=== PATIENT | female | born 1965 | race Caucasian/White ===

== ENCOUNTER → 2018-07-09 16:59 | Outpatient (CLI) | payer OTHER, SELFPAY ==
[2018-07-09 13:15] VITALS: BMI 31.8
== END ==
PROVIDERS: Family Provider Family Medicine; PCP Family Medicine; Referring Provider Nurse Practitioner Women's Health; Visit Provider Nurse Practitioner Women's Health
DX: Z12.4 Encounter for screening for malignant neoplasm of cervix (principal)
CPT/HCPCS: 87624; 88175; G0145

== ENCOUNTER → 2018-07-20 12:30 | Outpatient (CLI) | payer OTHER, SELFPAY ==
[2018-07-09 13:15] VITALS: BMI 31.8
--- NOTE | 2018-07-20 12:31 | US_ITS ---
STUDY: ULTRASOUND OF THE FEMALE PELVIS - COMPLETE REASON FOR EXAM: Female, 53 years old. Menorrhagia. LMP: 07/03/2018 TECHNIQUE: Transabdominal and Transvaginal TECHNICAL QUALITY: Adequate. COMPARISON: CT scan 06/15/2014. FINDINGS: The uterus is anteverted and is in a midline position. The uterus measures 10.1 x 5.6 x 4.8 cm. There is a Nabothian cyst of the cervix. The endometrium measures 5 mm in thickness, and is hyperechoic. There is no demonstrated endometrial mass. There is a 2.2 cm anterior fundal fibroid. The right ovary is visualized. The right ovary measures 3.5 x 2.5 x 2.8 cm. There is a 2.7 cm slightly complicated cystic structure. There is no visualized right adnexal mass or complex lesion. There is normal arterial and normal venous vascularity. The left ovary is visualized. The left ovary measures 3.0 x 3.2 x 2.2 cm. There is no left ovarian cyst or ovarian mass. There is no visualized left adnexal mass or complex lesion. There is normal arterial and normal venous vascularity. There is no fluid in the cul-de-sac. The pre void volume of the bladder was 170 ml. US/Pelvic (Non ) IMPRESSION: 2.2 cm uterine fibroid. 2.7 cm of the right ovarian cyst. Electronically Signed: Willy Grijalva MD at 13:56 EDT , Service support ,
--- NOTE | 2018-07-20 12:31 | US_ITS ---
STUDY: ULTRASOUND OF THE FEMALE PELVIS - COMPLETE REASON FOR EXAM: Female, 53 years old. Menorrhagia. LMP: 07/03/2018 TECHNIQUE: Transabdominal and Transvaginal TECHNICAL QUALITY: Adequate. COMPARISON: CT scan 06/15/2014. FINDINGS: The uterus is anteverted and is in a midline position. The uterus measures 10.1 x 5.6 x 4.8 cm. There is a Nabothian cyst of the cervix. The endometrium measures 5 mm in thickness, and is hyperechoic. There is no demonstrated endometrial mass. There is a 2.2 cm anterior fundal fibroid. The right ovary is visualized. The right ovary measures 3.5 x 2.5 x 2.8 cm. There is a 2.7 cm slightly complicated cystic structure. There is no visualized right adnexal mass or complex lesion. There is normal arterial and normal venous vascularity. The left ovary is visualized. The left ovary measures 3.0 x 3.2 x 2.2 cm. There is no left ovarian cyst or ovarian mass. There is no visualized left adnexal mass or complex lesion. There is normal arterial and normal venous vascularity. There is no fluid in the cul-de-sac. The pre void volume of the bladder was 170 ml. US/Transvaginal Non- IMPRESSION: 2.2 cm uterine fibroid. 2.7 cm of the right ovarian cyst. Electronically Signed: Willy Grijalva MD at 13:56 EDT , Service support ,
== END ==
PROVIDERS: Family Provider Family Medicine; PCP Family Medicine; Referring Provider Nurse Practitioner Women's Health; Visit Provider Nurse Practitioner Women's Health
DX: N92.1 Excessive and frequent menstruation with irregular cycle (principal)
CPT/HCPCS: 76830; 76856; 93976

== ENCOUNTER → 2018-07-22 16:51 | Outpatient (CLI) | payer OTHER, SELFPAY ==
[2018-07-09 13:15] VITALS: BMI 31.8
--- NOTE | 2018-07-22 | EMB_PTH ---
PATIENT: SHWETHA ELLIS LOC: [facility] U#:[id number] AGE/SX: 59/F ROOM: RE07/22/[address]: SWEETIE [place] : 1965 BED: DIS: SPEC #: [id number] RECD: 07/22/18 16:30 STATUS: SHEILA MONICA #: [id number] BEATA: 07/22/18 00:[address]: Brandy Fields NP DEPT: SURGICAL PATHOLOGY RECD BY: Randy Pedraza ENTERED: 07/23/18 12:30 SP TYPE: ENDOM BX/C ALYSIA DR: Dr. Effie Her MD Tissues: Endometrium, NOS Procedures: Surgery Specimen Level IV HEADER OPERATION: Endometrial biopsy PRE-OP DIAGNOSIS: Abnormal uterine bleeding TISSUE SUBMITTED: Endometrial biopsy MICROSCOPIC DIAGNOSIS Endometrial biopsy: Proliferative endometrium. SJ:shaunna 07/24/18 MICROSCOPIC DESCRIPTION Slides are reviewed. GROSS DESCRIPTION Received is one container labeled with the patient's name and not further designated. The specimen consists of multiple fragments of pink hemorrhagic soft tissue that in aggregate measure 3 x 2.5 x 0.3 cm. The specimen is totally submitted in one cassette. / SJ:shaunna 07/23/18 TC:4 CPT: 97137
[2018-07-24 20:06] LABS: HPV, High Risk Negative (Negative)
== END ==
PROVIDERS: Family Provider Family Medicine; PCP Family Medicine; Referring Provider Nurse Practitioner Women's Health; Visit Provider Nurse Practitioner Women's Health
DX: N92.1 Excessive and frequent menstruation with irregular cycle (principal); N93.9 Abnormal uterine and vaginal bleeding, unspecified
CPT/HCPCS: 87623; 87624; 88305

== ENCOUNTER → 2018-08-25 | Outpatient (CLI) | payer OTHER, SELFPAY ==
[2018-07-09 13:15] VITALS: BMI 31.8
--- NOTE | 2018-08-25 12:53 | BI_ITS ---
MAMMOGRAPHY - BILATERAL SCREENING REASON FOR EXAM: Female, 53 years old. Routine annual screening examination. PERTINENT HISTORY: Non-contributory. TECHNIQUE: Digital bilateral breast arun (3D mammographic acquisition) in the CC and MLO projections. 2-D mediolateral oblique (MLO) and craniocaudad (CC) views of both breasts were obtained. CAD: Full Field Digital Mammography with Computer Added Detection was performed. COMPARISON: Comparison is made with prior examination of July 10, 2016 and November 18, 2012. FINDINGS: Breast Composition: The breasts are heterogeneously dense, which may obscure small masses. There are no dominant masses or suspicious calcifications. Stable benign-appearing bilateral axillary lymph nodes. No other significant abnormalities are identified. There has been no significant change since the prior study. BI/SCREEN MAMM (CAD) W/ARUN BILAT IMPRESSION: Stable bilateral screening mammogram. Yearly follow-up mammogram recommended. (A) ASSESSMENT CATEGORY: BIRADS Category 2: Benign. A letter regarding these results will be sent to the patient by the facility within 30 days. Approximately 10% of breast cancers are not detected by mammography. A normal mammogram should not delay biopsy of a clinically suspicious abnormality. [id number] Electronically Signed: Johnathon Kiran, at 15:46 EDT , Service support ,
== END | disposition home or self-care (01) ==
LOC: OPBI 12:45
PROVIDERS: Family Provider Family Medicine; PCP Family Medicine; Referring Provider Nurse Practitioner Women's Health; Visit Provider Nurse Practitioner Women's Health
DX: Z12.31 Encounter for screening mammogram for malignant neoplasm of breast (principal)
CPT/HCPCS: 77063; 77067

== ENCOUNTER → 2018-08-27 | Outpatient (CLI) | payer OTHER, SELFPAY ==
[2018-07-09 13:15] VITALS: BMI 31.8
== END | disposition home or self-care (01) ==
LOC: LABSPEC 16:22
PROVIDERS: Family Provider Family Medicine; PCP Family Medicine; Referring Provider Family Medicine; Visit Provider Family Medicine
DX: N39.0 Urinary tract infection, site not specified (principal)
CPT/HCPCS: 87086; 87088

== ENCOUNTER → 2019-04-01 13:54 | Outpatient (CLI) | payer OTHER, SELFPAY ==
[2019-03-30 14:51] VITALS: BMI 31.8
[2019-04-01 16:02] LABS: Erythrocyte Sedimentation Rate 13 mm/hr (0-30)
[2019-04-01 16:04] LABS: Hematocrit 38.7 % (37-47); Hemoglobin 11.9 g/dL (12.0-15.0); Mean Corp Hgb Conc 30.7 g/dL (32-36); Mean Corpuscular Hgb 24.7 pg (27.0-32.0); Mean Corpuscular Volume 80.3 fL (81-99); Mean Platelet Vol. 11.1 fl (6.2-12.0); Platelet Count 267 K/mm3 (150-450); RBC Distribution Width CV 15.6 % (11.6-14.6); RBC Distribution Width SD 44.9 fl (35.1-43.9); Red Blood Count 4.82 M/mm3 (4.2-5.4)
[2019-04-01 16:16] LABS: ALB/GLOB Ratio 1.1 RATIO (0.9-2.4); AST(SGOT) 34 U/L (15-37); Alanine Aminotransfer ALT/SGPT 34 U/L (13-56); Albumin, Serum 3.7 g/dL (3.2-5.0); Alkaline Phosphatase 85 U/L (45-117); Anion Gap 5 (5-15); BUN 16 mg/dL (7-18); BUN/Creat Ratio 22.7 RATIO (10-20); Chloride 106 mmol/L (98-107); Creatinine, Serum 0.71 mg/dL (0.55-1.02); EST Glomerular Filtration Rate 92 mL/min (>60); Est Glom Filt Rate - Afr Amer 111 mL/min (>60); Ferritin 8 ng/mL (8-252); Free T3 2.9 pg/mL (2.18-3.98); Globulin 3.4 g/dL (2.2-4.2); Glucose 84 mg/dL (74-106); Magnesium 1.8 mg/dL (1.6-2.6); Protein, Total 7.1 g/dL (6.4-8.2); Sodium Level 140 mmol/L (136-145); T3 Uptake 31 % (30-39); T4 Free Direct 0.88 ng/dL (0.76-1.46); Thyroid Stim Hormone (TSH) 2.66 uIU/mL (0.358-3.74)
[2019-04-01 16:57] LABS: Vitamin B12 1266 pg/mL (211-911); Vitamin D,25 Hydroxy 27.8 ng/mL (29.95-100.01)
[2019-04-03 13:31] LABS: Thyroid Peroxidase AB 7 IU/mL (0-34)
== END ==
PROVIDERS: Family Provider Family Medicine; PCP Family Medicine; Referring Provider Family Medicine; Visit Provider Family Medicine
DX: R53.83 Other fatigue (principal)
CPT/HCPCS: 36415; 80053; 82306; 82607; 82728; 83735; 84439; 84443; 84479; 84481; 85027; 85652; 86376

== ENCOUNTER 2019-04-12 09:42 | Day surgery (SDC) | payer OTHER, SELFPAY ==
[2019-03-30 14:51] VITALS: BMI 31.8
--- NOTE | 2019-03-31 12:39 | HP_ITS ---
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: No Is patient in pain?: No Allergies morphine Allergy (Verified 03/30/19 14:50) Other Medications biotin 1 mg capsule 1 mg PO DAILY 07/22/18 [History Confirmed 07/22/18] cholecalciferol (vitamin D3) 1,000 unit capsule 1,000 unit PO DAILY 07/22/18 [History Confirmed 03/30/19] cyanocobalamin (vitamin B-12) 1,000 mcg capsule 1,000 mcg PO DAILY 07/22/18 [History Confirmed 03/30/19] vitamin A 8,000 unit capsule 8,000 unit PO DAILY 07/22/18 [History Confirmed 03/30/19] psyllium husk 0.4 gram capsule 0.4 g PO DAILY 03/30/19 [History Confirmed 03/30/19] PFSH Medical History Fatigue (Acute) Hyperglycemia (Acute) Acid reflux (Acute) Constipation (Acute) Abdominal pain (Acute) Surgical History Hx of umbilical hernia repair (Acute) delivery delivered (Acute) Hx of appendectomy (Acute) Hx of cholecystectomy (Acute) Family History Mother Cancer lung-smoker Father Atrophic emphysema Thyroid disorder Sister Thyroid disorder Social History (Updated 03/31/19 @ 12:39 by Debbie Foster MD) Smoking Status: Never smoker alcohol intake: never substance use type: does not use caffeine: Yes what type of physical activity do you participate in: walking seatbelt use: always do you feel safe at home: Yes additional social history: Pavel chatterjee 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 Patient states she has had abdominal pain above the umbilicus off and on for a while occasionally can get at 10/10 does resolve on its own. Patient has had 2 previous hernia repairs at the umbilicus patient states that the last repair was done by Dr. Warren he placed a large piece of mesh and did remove some of the other mesh but unable to remove all of it per the patient. Patient does not notice anything that makes the pain worse or aggravates the pain. Patient has never had a colonoscopy denies any family history of colon cancer. Patient states she has bowel movements every other day. Patient does take a fiber supplement twice daily however it is typically only about 3 pills which only equals 4.5 g. Patient does not think she drinks enough water. Patient also states she has daily reflux and takes Tums. She has had these symptoms for about 10 years. Patient was on Prilosec however she got kidney stones and she read that can be 1 of the side effects when she stopped the Prilosec she no longer got any kidney stones. 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 Abdominal pain R10.9 2. GERD (gastroesophageal reflux disease) K21.9 3. Encounter for screening for malignant neoplasm of colon Z12.11 Plan Recommend patient try taking Pepcid instead of Tums as it will likely work better. We will also check and see if there is any of the PPIs that does not have the side effect of kidney stones. Patient may also benefit from increased water intake as well as fiber intake. Discussed with patient recommend 25 g of fiber daily. I have discussed the above with the patient. I have offered the patient EGD and colonoscopy for evaluation. I have explained the risks/benefits of the procedure and described the procedure. I have discussed the risks with the patient, including but not limited to: infection, bleeding, perforation of the GI tract requiring emergency surgery, inability to complete the procedure, injury to any internal organs, complications of anesthesia, etc. - the patient understands and agrees to proceed. I have answered all the patient's questions to the patient's satisfaction and the patient has no further questions. The patient has been given instructions for the colon cleansing preparation. One day of clears, MiraLAX to collect split prep Debbie Foster M.D. Pager: [phone] [facility] [address] [place] [address], [address] [place] [id number] Office: [phone] Orders Orders: Colonoscopy 03/30/19 EGD 03/30/19 Plan Detail Follow Up We will schedule EGD and colonoscopy Coding Level of Care Code Off vis,new,level 3 Diagnoses Abdominal pain R10.9 GERD (gastroesophageal reflux disease) K21.9 Encounter for screening for malignant neoplasm of colon Z12.11 03/31/19 1239 <Electronically signed by Debbie Yee am, MD> Date _ Debbie Foster MD I have examined the patient the following changes are noted: Patient still has been having reflux and been taking Tums 2-3 times daily. Encourage patient to try at least Pepcid/famotidine instead as it should work better than Tums.
[2019-04-12 10:05] VITALS: BP 123/78; PULSE 71; RESP 16; TEMP 37.1; O2SAT 99; BMI 31.1
[2019-04-12 10:08] LABS: Internal QC Validated? YES +Cl - CLEAR BKGD; Pregnancy, Urine Negative Negative
[2019-04-12] MEDS: Lactated Ringers 1,000 ML 100 ML IV (10:12)
--- NOTE | 2019-04-12 11:00 | EGD_PTH ---
PATIENT: SHWETHA ELLIS LOC: EN U#:[id number] AGE/SX: 53/F ROOM: RE04/12/[address]: Dr. Debbie Foster MD : 1965 BED: DIS: 04/12/2019 SPEC #: [id number] RECD: 04/12/19 13:15 STATUS: SHEILA MONICA #: [id number] BEATA: 04/12/19 11:[address]: Debbie Foster DEPT: SURGICAL PATHOLOGY RECD BY: Sebastian Salmon ENTERED: 04/12/19 14:17 SP TYPE: EGD BIOPSY CHANNING DR: Dr. Effie Her MD Tissues: A - Gastric mucous membrane B - Gastric mucous membrane Procedures: Surgery Specimen Level IV HEADER OPERATION: Colonoscopy, [place] [place] DIAGNOSIS: Abdominal pain, GERD, screening colonoscopy TISSUE SUBMITTED: A. Antrum biopsy for H. pylori and path, B. GE junction biopsy MICROSCOPIC DIAGNOSIS A. Gastric antrum, biopsy: Mild chronic gastritis. See comment. B. Gastroesophageal junction, biopsy: Gastric mucosa with chronic inflammation and focal acute inflammation. See comment. AM:shaunna 04/13/19 COMMENT A. The results of immunohistochemistry for Helicobacter pylori will be reported separately ([id number]). B. Squamous mucosa is not represented in the biopsy. Clinical correlation is suggested. MICROSCOPIC DESCRIPTION Slides are reviewed. GROSS DESCRIPTION A - Received in fixative is one container labeled with the patient's name and designated antrum biopsy. The specimen consists of one irregular fragment of light ortiz soft tissue that measures 0.6 x 0.2 x 0.1 cm. The specimen is totally submitted in one cassette. B - Received in fixative is one container labeled with the patient's name and designated GE junction biopsy. The specimen consists of one irregular fragment of light ortiz soft tissue that measures 0.5 x 0.3 x 0.1 cm. The specimen is totally submitted in one cassette. / AM:shaunna 04/12/19 TC:3 CPT: 44894 x2
--- NOTE | 2019-04-12 11:00 | IMM_PTH ---
PATIENT: SHWETHA ELLIS LOC: EN U#:[id number] AGE/SX: 53/F ROOM: RE04/12/[address]: Dr. Debbie Foster MD : 1965 BED: DIS: 04/12/2019 SPEC #: [id number] RECD: 04/12/19 14:50 STATUS: SHEILA REQ #: [id number] BEATA: 04/12/19 11:[address]: Debbie Foster DEPT: IMMUNOHISTOCHEMISTRY RECD BY: Kizzy Lam ENTERED: 04/12/19 14:51 SP TYPE: IMMUNO OTHR DR: Dr. Effie Her MD Tissues: A - Stomach, NOS Procedures: H Pylori (initial) PHYSICIAN & INSTITUTION [place] [id number] SPECIMEN INFORMATION: Tissue Source: A - Antrum biopsy Clinical Info: Abdomen pain, GERD, screening Specimen Number: [id number] CPT code: 15830 METHODOLOGY: Deparaffinized sections of prefer/formalin-fixed tissue or PAP/DQ stained slides are incubated with monoclonal/polyclonal antibodies/oligonucleotide probes. Localization is made via biotin free immunoperoxidase method. Appropriate controls are performed and reacted as expected. Results on target cell population are indicated in the following table: RESULTS: ANTIBODY / CLONE RESULT Block A H Pylori (polyclonal) negative These tests were developed and their performance characteristics determined by [facility]. They may not have been cleared or approved by the U.S. Food and Drug Administration. The FDA has determined that such clearance or approval is not necessary. INTERPRETATION: A. Antrum biopsy: Negative for Helicobacter pylori organisms. AM:shaunna 04/13/19
[2019-04-12 11:57] VITALS: BP 123/78; BP 99/56; PULSE 70; RESP 16; TEMP 36.6; O2SAT 96
--- NOTE | 2019-04-12 11:57 | OP.EGD_ITS ---
Patient Name: Evette Alvarenga Procedure Date: 04/12/2019 11:21 AM Date of : 1965 Age: 53 Procedure: Upper GI endoscopy Indications: Heartburn Providers: Debbie Foster MD Referring MD: Effie Her Medicines: Monitored Anesthesia Care Patient Profile: This is a 53 year old female. Complications: No immediate complications. Procedure: Pre-Anesthesia Assessment: - Prior to the procedure, a History and Physical was performed, and patient medications and allergies were reviewed. The patient's tolerance of previous anesthesia was also reviewed. The risks and benefits of the procedure and the sedation options and risks were discussed with the patient. All questions were answered, and informed consent was obtained. Prior Anticoagulants: The patient has taken no previous anticoagulant or antiplatelet agents. ASA Grade Assessment: II - A patient with mild systemic disease. After reviewing the risks and benefits, the patient was deemed in satisfactory condition to undergo the procedure. After obtaining informed consent, the endoscope was passed under direct vision. Throughout the procedure, the patient's blood pressure, pulse, and oxygen saturations were monitored continuously. The gastroscope was introduced through the mouth, and advanced to the second part of duodenum. The upper GI endoscopy was accomplished without difficulty. The patient tolerated the procedure well. Scope In: 11:29:18 AM Scope Out: 11:33:48 AM Total Procedure Duration Time 0 hours 4 minutes 30 seconds Findings: The Z-line was irregular. Biopsies were taken with a cold forceps for histology. Mildly erythematous mucosa without bleeding was found in the gastric antrum. Biopsies were taken with a cold forceps for histology. A few less than 5 mm erosions were found in the gastric body. The examined duodenum was normal. Impression: - Z-line irregular. Biopsied. - Erythematous mucosa in the antrum. Biopsied. - Erosive gastropathy. - Normal examined duodenum. Recommendation: - Use Pepcid (famotidine) 40 mg PO daily. - Use sucralfate tablets 1 gram PO QID for 2 weeks. - Continue present medications. Procedure Code(s): --- Professional --- 21415, Esophagogastroduodenoscopy, flexible, transoral; with biopsy, single or multiple Diagnosis Code(s): --- Professional --- K22.8, Other specified diseases of esophagus K31.89, Other diseases of stomach and duodenum R12, Heartburn CPT copyright 2017 [employer]. All rights reserved. The codes documented in this report are preliminary and upon analog device designer review may be revised to meet current compliance requirements. MD Debbie Donohue MD 04/12/2019 11:57:27 AM This report has been signed electronically. Number of Addenda: 0 Note Initiated On: 04/12/2019 11:21 AM
--- NOTE | 2019-04-12 12:00 | OP.COLON_ITS ---
Patient Name: Evette Alvarenga Procedure Date: 04/12/2019 11:34 AM Date of : 1965 Age: 53 Procedure: Colonoscopy Indications: Screening for colorectal malignant neoplasm Providers: Debbie Foster MD Referring MD: Effie Her Medicines: Monitored Anesthesia Care Patient Profile: This is a 53 year old female. Last Colonoscopy: none. The patient's first colonoscopy is today. Complications: No immediate complications. Procedure: Pre-Anesthesia Assessment: - Prior to the procedure, a History and Physical was performed, and patient medications and allergies were reviewed. The patient's tolerance of previous anesthesia was also reviewed. The risks and benefits of the procedure and the sedation options and risks were discussed with the patient. All questions were answered, and informed consent was obtained. Prior Anticoagulants: The patient has taken no previous anticoagulant or antiplatelet agents. ASA Grade Assessment: II - A patient with mild systemic disease. After reviewing the risks and benefits, the patient was deemed in satisfactory condition to undergo the procedure. After I obtained informed consent, the scope was passed under direct vision. Throughout the procedure, the patient's blood pressure, pulse, and oxygen saturations were monitored continuously. The Colonoscope was introduced through the anus and advanced to the cecum, identified by the appendiceal orifice, ileocecal valve and palpation. The colonoscopy was performed without difficulty. The patient tolerated the procedure well. The quality of the bowel preparation was good. Scope In: 11:36:09 AM Scope Withdrawal Time 0 hours 8 minutes 32 seconds Scope Out: 11:49:40 AM Total Procedure Duration Time 0 hours 13 minutes 31 seconds Findings: The perianal and digital rectal examinations were normal. The entire examined colon appeared normal on direct and retroflexion views. Impression: - The entire examined colon is normal on direct and retroflexion views. - No specimens collected. Recommendation: - Discharge patient to home. - Resume previous diet. - Repeat colonoscopy in 10 years for screening purposes. - Continue present medications. Procedure Code(s): --- Professional --- G0121, PT, Colorectal cancer screening; colonoscopy on individual not meeting criteria for high risk Diagnosis Code(s): --- Professional --- Z12.11, Encounter for screening for malignant neoplasm of colon CPT copyright 2017 [employer]. All rights reserved. The codes documented in this report are preliminary and upon medical records coder review may be revised to meet current compliance requirements. MD Debbie Donohue MD 04/12/2019 12:00:11 PM This report has been signed electronically. Number of Addenda: 0 Note Initiated On: 04/12/2019 11:34 AM
[2019-04-12 12:02] VITALS: BP 100/60; BP 123/78; PULSE 77; RESP 16; O2SAT 98
[2019-04-12 12:07] VITALS: BP 117/69; BP 123/78; PULSE 74; RESP 16; O2SAT 100
[2019-04-12 12:12] VITALS: BP 118/67; BP 123/78; PULSE 78; RESP 16; TEMP 36.6; O2SAT 99
[2019-04-12 13:00] VITALS: BP 123/78
== END 2019-04-12 13:03 | disposition home or self-care (01) ==
LOC: EN 09:44 → AC 09:45
PROVIDERS: Anesthesiology; Family Provider Family Medicine; PCP Family Medicine; Referring Provider Family Medicine; Visit Provider Surgery
PROC: 0DJD8ZZ Inspection of Lower Intestinal Tract, Via Natural or Artificial Opening Endoscopic (ICD-10-PCS; CPT 45378; principal; 2019-04-12 10:55)
DX: Z12.11 Encounter for screening for malignant neoplasm of colon (principal); K29.50 Unspecified chronic gastritis without bleeding; K31.89 Other diseases of stomach and duodenum; K22.8 Other specified diseases of esophagus; K21.9 Gastro-esophageal reflux disease without esophagitis; R12 Heartburn; R10.33 Periumbilical pain
CPT/HCPCS: 43239; 45378; 81025; 88305; 88342; J7120

== ENCOUNTER → 2020-01-27 17:36 | Outpatient (CLI) | payer OTHER, SELFPAY | PROVIDERS: PCP Family Medicine; Referring Provider Family Medicine; Visit Provider Family Medicine | DX: Z11.59 Encounter for screening for other viral diseases (principal) | CPT/HCPCS: 87635; C9803; U0003 ==

== ENCOUNTER → 2020-06-29 | Outpatient (CLI) | payer OTHER, SELFPAY ==
[2020-06-29 15:40] VITALS: BMI 31.8
[2020-07-04 20:33] LABS: HPV APTIMA, High Risk Negative (Negative)
== END | disposition home or self-care (01) ==
LOC: LABSPEC 16:37
PROVIDERS: PCP Family Medicine; Referring Provider Nurse Practitioner Women's Health; Visit Provider Nurse Practitioner Women's Health
DX: Z12.4 Encounter for screening for malignant neoplasm of cervix (principal)
CPT/HCPCS: 87624; 88175; G0145

== ENCOUNTER → 2020-07-25 15:03 | Outpatient (CLI) | payer OTHER, SELFPAY ==
[2020-06-29 15:40] VITALS: BMI 31.8
--- NOTE | 2020-07-25 15:15 | US_ITS ---
STUDY: RENAL ULTRASOUND - COMPLETE REASON FOR EXAM: Female, 55 years old. Flank pain and renal stones TECHNIQUE: Ultrasound evaluation of the kidneys was performed with real-time and static mayen-scale imaging. COMPARISON: None. FINDINGS: RIGHT KIDNEY: Normal location of the right kidney, which is normal in size. The right kidney measures 12.1 cm x 5.1 cm x 5.1 cm. There is a normal cortex of the right kidney. The renal cortex measures 1.7 cm. There is no right renal mass or cyst. 3 mm calculus in the midportion of the right kidney. There is no right hydronephrosis. DISTAL RIGHT URETER: There is non-visualization of the distal right ureter. There is no demonstrated right ureterovesical junction calculus. There is no demonstrated right ureteral jet. LEFT KIDNEY: Normal location of the left kidney, which is normal in size. The left kidney measures 13.1 cm x 4.6 cm x 6.2 cm. There is a normal cortex of the left kidney. The renal cortex measures 1.6 cm. There is no left renal mass or cyst. 6 mm calculus in the midportion of the left kidney. There is no left hydronephrosis. DISTAL LEFT URETER: There is non-visualization of the distal left ureter. There is no demonstrated left ureterovesical junction calculus. There is a visualized left ureteral jet. BLADDER: The distended urinary bladder has a volume of 166.5 ml. The empty urinary bladder has a volume of 17.3 ml. There is a normal wall thickness of the distended urinary bladder. There is no demonstrated mass within the urinary bladder. There are no demonstrated bladder calculi. US/Kidney and Bladder IMPRESSION: Small nonobstructive bilateral intrarenal calculi. Electronically Signed: Johnathon Kiran MD at 14:22 EDT , Service support ,
== END ==
PROVIDERS: PCP Family Medicine; Referring Provider Family Medicine; Visit Provider Family Medicine
DX: M54.9 Dorsalgia, unspecified (principal)
CPT/HCPCS: 76770

== ENCOUNTER 2021-03-25 10:20 | Emergency (ER) | payer OTHER, SELFPAY ==
[2021-03-25 10:26] VITALS: BP 118/65; PULSE 65; RESP 16; TEMP 36.7; O2SAT 96; BMI 34.9
--- NOTE | 2021-03-25 10:35 | RAD_ITS ---
STUDY: X-RAY CHEST REASON FOR EXAM: Female, 55 years old. chest pain TECHNIQUE: Single AP portable view of the chest. COMPARISON: None. FINDINGS: The lungs are clear and expanded. There is no demonstrated pleural abnormality. Normal size heart. Normal mediastinum and pratik. Normal visualized pulmonary arteries. Normal visualized aortic arch and descending thoracic aorta. Normal visualized thoracic spine. Normal visualized ribs, clavicles, and shoulders. There is no demonstrated abnormality of the visualized soft tissue structures of the upper abdomen. RAD/Chest 1 View (Portable) IMPRESSION: Normal x-ray examination of the chest. Electronically Signed: Hood Estrada MD at 10:55 EST Tel , Service support ,
--- NOTE | 2021-03-25 10:35 | EKG12_ITS ---
Test Reason : CP Blood Pressure : / mmHG Vent. Rate : 063 BPM Atrial Rate : 063 BPM P-R Int : 148 ms QRS Dur : 084 ms QT Int : 408 ms P-R-T Axes : 047 009 004 degrees QTc Int : 417 ms Normal sinus rhythm Low voltage QRS Borderline ECG Confirmed by RIMA WIGGINS, JEANIE ([id number]), book editor TYSON CRESPO ([id number]) on 03/28/2021 10:38:05 AM Referred By: ESTELLA Confirmed By:JEANIE ABARCA MD
--- NOTE | 2021-03-25 10:36 | EDS_ITS ---
HPI History of Present Illness Chief Complaint: Chest Pain Detail of Chief Complaint: Chest pain that started about 9:30 AM Informant: patient Onset/Context/Timing Timing: Continuous Quality: Positive for Stabbing Current Severity: 0/10 Narrative Narrative: Patient presents to the emergency department complaint of chest pain that started about 9:30 AM. 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 Patient subsequently developed sharp stabbing pain in her right chest, radiated to her back and the left chest. She denied nausea or vomiting with it or shortness of breath. Patient then noticed numbness and ting ling in her hands and her face. She felt presyncopal but did not pass out. EMS was called and they gave her nitroglycerin which she thinks seem to have helped the pain. She is currently not experiencing any pain. Patient has not had discomfort like that before. She denies recent travel or surgery. She denies recent illness. No family history of heart disease. No history of PE or DVT. [facility] Medical History (Updated 03/25/21 @ 13:[address] Tico Mehta, ) Acid reflux Hyperglycemia Home Medications biotin 1 mg capsule 1 mg PO DAILY 07/22/18 [History Last Taken Unknown] cholecalciferol (vitamin D3) 25 mcg (1,000 unit) capsule 1,000 unit PO DAILY 07/22/18 [History Last Taken Unknown] cyanocobalamin (vitamin B-12) 1,000 mcg capsule 1,000 mcg PO DAILY 07/22/18 [History Last Taken Unknown] vitamin A 2,400 mcg capsule 8,000 unit PO DAILY 07/22/18 [History Last Taken Unknown] multivitamin 1 tab PO DAILY 06/29/20 [History Last Taken Unknown] Allergy/AdvReac Type Severity Reaction Status Date / Time morphine Allergy LOW BP AND Verified 03/25/21 10:28 HR Family History Mother Cancer lung-smoker Father Atrophic emphysema Thyroid disorder Sister Thyroid disorder Surgical History delivery delivered Hx of appendectomy Hx of cholecystectomy Hx of umbilical hernia repair Social History (Updated 06/29/20 @ 16:07 by Brandy Fields NP, [employer]) number of children: 6 Smoking Status: Never smoker alcohol intake: never substance use type: does not use caffeine: Yes what type of physical activity do you participate in: walking seatbelt use: always do you feel safe at home: Yes additional social history: Pavel chatterjee 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 ROS ROS ED Review of Systems ROS Unobtainable: other Constitutional Constitutional ED: Reports lethargy; Denies chills, fever(s), sweats or weight l oss Eyes Eyes: Denies blurry vision, change in vision or diplopia ENT ENT ED: Denies rhinorrhea or sore throat Cardiovascular Cardiovascular: Reports chest pain; Denies orthopnea or racing heartbeat Respiratory/Chest Respiratory/Chest: Reports dyspnea and dyspnea on exertion; Denies cough, orthopnea or sputum Gastrointestinal Gastrointestinal: Denies abdominal pain, diarrhea, nausea or vomiting Genitourinary Genitourinary ED: Denies dysuria, hematuria or urinary frequency Musculoskeletal Musculoskeletal: Denies arthralgias, back pain, myalgias or neck pain Integumentary Denies abscess, Abrasions or rash Neurologic Neurologic: Reports paresthesias; Denies headache(s) or weakness Psychiatric Psychiatric: Denies anxiety, depression or suicidal thoughts Endocrine Endocrinology: Denies polydipsia, polyphagia or polyuria Hematologic/Lymphatic Hematologic/Lymphatic: Denies easy bleeding, easy bruising or lymphadenopathy Allergic/Immunologic Allergic/Immunologic ED: Denies mouth swelling, tongue swelling or urticaria EXAM Physical Exam Const Vital Signs: 03/25/21 10:26 03/25/21 10:35 03/25/21 10:43 Temperature 98.1 F Temperature Source Oral Pulse Rate 65 Respiratory Rate 16 Respiratory Effort Normal Respiratory Pattern Normal Blood Pressure 118/65 Blood Pressure Mean 82 Pulse Ox 96 Oxygen Delivery Method Room Air Room Air 03/25/21 11:00 03/25/21 12:00 Temperature Temperature Source Pulse Rate 59 L 64 Respiratory Rate 15 14 Respiratory Effort Respiratory Pattern Blood Pressure 114/64 125/65 H Blood Pressure Mean 80 85 Pulse Ox 97 99 Oxygen Delivery Method Room Air Room Air Positive well nourished and well developed General Appearance ED: well developed and NAD HEENT Reports TM's clear and moist mucous membranes normocephalic and atraumatic; Negative for trauma or tenderness Tympanic Membrane ED: Yes TM's clear Eyes PERRL and EOMs intact bilaterally General Eye ED: Negative for pale conjunctiva or scleral icterus Neck no lymphadenopathy, supple and no JVD General: Negative for tenderness Chest Wall inspection of chest normal and palpation of chest normal Chest: Negative for tenderness Resp normal respiratory effort and clear to auscultation bilaterally Effort and Inspection: Negative for respiratory distress or pain with movement Auscultation: Negative for rhonchi, wheezes or diminished lung sounds Cardio regular rate, regular rhythm, S1 normal heart sound, S2 normal heart sound and no murmurs Peripheral Pulses: pulses 2+ throughout GI normal to inspection, nondistended, normoactive bowel sounds, soft to palpation, non-tender, non-distended and no masses Back/Spine no CVA tenderness and no thoracic nor lumbar tenderness Extremity normal to inspection General Extremety ED: Negative for edema General Extremity: Negative for edema Neuro oriented x3, CN's II-XII intact bilaterally, no sensory deficits noted and gait normal Sensorium / Orientation: awake, alert, oriented to person, oriented to place and oriented to time Motor Exam: strength 5/5 throughout and strength abnormal Psych mental status grossly normal Skin no rashes or lesions noted and no wounds Heart Score History: Slightly/Non-Suspicious ECG: Normal Age: >45 - <65 years Risk Factors: No Risk Factors Troponin: </= Normal Limit Score: 1 MDM MDM MDM Narrative Medical decision making narrative: IV line established on arrival. Patient placed on a residential monitor. She received aspirin. Patient remained pain-free in the department. Her work-up in the department was unremarkable including blood work as well as D-dimer which was negative. Patient initial troponin was also normal and a delta troponin also was normal. This point etiology of her discomfort was unclear although I do not suspect an acute coronary syndrome as she has a heart score of 1 and feel she is low risk. Is possible she may have had a vasovagal episode as well given the paresthesias and near syncope sensation. Patient also had been standing for some time. Lab Data Attestation: I reviewed the patient's lab results. Labs: Laboratory Results - last 24 hr 03/25/21 03/25/21 03/25/21 10:35 10:35 10:35 WBC 7.6 RBC 3.88 L Hgb 10.1 L Hct 32.0 L MCV 82.5 MCH 26.0 L MCHC 31.6 L RDW Std Deviation 45.8 H RDW Coeff of Zaria 15.3 H Plt Count 229 MPV 10.7 Immature Gran % (Auto) 0.400 Neut % (Auto) 55.7 Lymph % (Auto) 30.5 Woodward % (Auto) 9.7 Eos % (Auto) 3.0 Baso % (Auto) 0.7 Absolute Neuts (auto) 4.2 Absolute Lymphs (auto) 2.32 Nucleated RBC % 0 D-Dimer Quant (PE/DVT) 0.35 Sodium 143 Potassium 3.9 Chloride 111 H Carbon Dioxide 28.0 Anion Gap 4 L BUN 15 Creatinine 0.72 Estim Creat Clear Calc 79.44 Est GFR (MDRD) Af Amer 108 Est GFR (MDRD) Non-Af 90 BUN/Creatinine Ratio 20.9 H Glucose 103 Calcium 8.6 Troponin I High Sens < 3 L 03/25/21 12:30 WBC RBC Hgb Hct MCV MCH MCHC RDW Std Deviation RDW Coeff of Zaria Plt Count MPV Immature Gran % (Auto) Neut % (Auto) Lymph % (Auto) Woodward % (Auto) Eos % (Auto) Baso % (Auto) Absolute Neuts (auto) Absolute Lymphs (auto) Nucleated RBC % D-Dimer Quant (PE/DVT) Sodium Potassium Chloride Carbon Dioxide Anion Gap BUN Creatinine Estim Creat Clear Calc Est GFR (MDRD) Af Amer Est GFR (MDRD) Non-Af BUN/Creatinine Ratio Glucose Calcium Troponin I High Sens 4 Radiography Chest X-Ray - ED: 1 View Diagnostic Testing: Clinical Impression(s) from Imaging Studies Chest X-Ray 03/25/21 10:35 IMPRESSION: Normal x-ray examination of the chest. Electronically Signed: Hood Estrada MD at 10:55 EST Tel , Service support , 1 view chest x-ray obtained interpreted by myself as no acute disease process. EKG Initial EKG: Attestation: I personally reviewed and interpreted this EKG as follows: Comments: Sinus rhythm with a ventricular rate of 63 bpm with low voltage otherwise no acute disease process Discharge Plan Triage Chief Complaint: Chest Pain ED Provider: Tico Mehta Dx/Rx/DC Orders Clinical Impression: Chest pain, Near syncope Instructions: ED Chest Pain, Uncertain Cause, ED Near-Fainting, Uncertain Cause Prescriptions: No Action vitamin A 8,000 unit capsule 8,000 unit PO DAILY RF: 0 cyanocobalamin (vitamin B-12) 1,000 mcg capsule 1,000 mcg PO DAILY RF: 0 cholecalciferol (vitamin D3) 1,000 unit capsule 1,000 unit capsule 1,000 unit PO DAILY RF: 0 biotin 1 mg capsule 1 mg PO DAILY RF: 0 multivitamin Tablet 1 tab PO DAILY RF: 0 Primary Care Provider: Effie Her Referrals: Effie Her MD [Primary Care Provider] - 3-5 Days Disposition Disposition: Home, Self Care
[2021-03-25 10:49] LABS: Absolute Lymphocyte Count 2.32 X10^3/uL (0.83-4.51); Absolute Neutrophil Count 4.2 X10^3/uL (2.0-7.7); Basophil# 0.05 X10^3/uL; Basophil% 0.7 % (0-1); Eosinophil# 0.23 X10^3/uL; Hemoglobin 10.1 g/dL (12.0-15.0); Lymphocyte # 2.32 X10^3/ul (0.83-4.51); Lymphocyte % 30.5 % (19-41); Mean Corp Hgb Conc 31.6 g/dL (32-36); Mean Corpuscular Volume 82.5 fL (81-99); Mean Platelet Vol. 10.7 fl (6.2-12.0); Monocyte# 0.74 X10^3/uL; Monocyte% 9.7 % (0-10); NRBC Flagged by Analyzer 0 % (0-5); Neutrophil # 4.23 X10^3/uL (2.7-7.7); Neutrophil % 55.7 % (47-70); Platelet Count 229 K/mm3 (150-450); RBC Distribution Width CV 15.3 % (11.6-14.6); RBC Distribution Width SD 45.8 fl (35.1-43.9); Red Blood Count 3.88 M/mm3 (4.2-5.4); White Blood Count 7.6 K/mm3 (4.4-11.0)
[2021-03-25 11:00] VITALS: BP 114/64; PULSE 59; RESP 15; O2SAT 97
[2021-03-25 11:05] LABS: Anion Gap 4 (5-15); BUN 15 mg/dL (7-18); BUN/Creat Ratio 20.9 RATIO (10-20); Calcium,Total 8.6 mg/dL (8.5-10.1); Chloride 111 mmol/L (98-107); Creatinine, Serum 0.72 mg/dL (0.55-1.02); D-Dimer Quantitative (DVT/PE) 0.35 FEU/ug/m (0.27-0.49); EST Glomerular Filtration Rate 90 mL/min (>60); Est Glom Filt Rate - Afr Amer 108 mL/min (>60); Estimated Creatinine Clearance 79.44 ml/min; Glucose 103 mg/dL (74-106); Potassium 3.9 mmol/L (3.5-5.1); Sodium Level 143 mmol/L (136-145); Troponin-I HS < 3 pg/mL (3.0-54.0)
[2021-03-25 12:00] VITALS: BP 125/65; PULSE 64; RESP 14; O2SAT 99
[2021-03-25 12:55] LABS: Troponin-I HS 4 pg/mL (3.0-54.0)
[2021-03-25 13:30] VITALS: BP 108/62; PULSE 65; RESP 22; O2SAT 96
== END 2021-03-25 13:31 | disposition home or self-care (01) ==
PROVIDERS: Emergency Provider Emergency Medicine; PCP Family Medicine
DX: R07.89 Other chest pain (principal); R55 Syncope and collapse; R20.2 Paresthesia of skin; R20.0 Anesthesia of skin
CPT/HCPCS: 71045; 80048; 84484; 85025; 85379; 93005; 99284; A4216

== ENCOUNTER → 2021-03-27 | Outpatient (CLI) | payer OTHER, SELFPAY ==
--- NOTE | 2021-03-27 | EMB_PTH ---
PATIENT: SHWETHA ELLIS LOC: [facility] U#:[id number] AGE/SX: 55/F ROOM: RE03/27/[address]: SWEET[place] : 1965 BED: DIS: 03/27/2021 SPEC #: [id number] RECD: 03/27/21 13:08 STATUS: SHEILA REQ #: [id number] BEATA: 03/27/21 00:[address]: Brandy Fields NP DEPT: SURGICAL PATHOLOGY RECD BY: Edgar Mohamud ENTERED: 03/27/21 13:08 SP TYPE: ENDOM BX/C ALYSIA DR: Dr. Effie Her MD Tissues: Endometrium, NOS Procedures: Surgery Specimen Level IV HEADER OPERATION: Endometrial biopsy PRE-OP DIAGNOSIS: PMB TISSUE SUBMITTED: Endometrial biopsy MICROSCOPIC DIAGNOSIS Endometrium, biopsy: Weakly proliferative endometrium with focal glandular breakdown. Fragments of benign endocervix. AM:shaunna 03/28/2021 MICROSCOPIC DESCRIPTION Slides are reviewed. GROSS DESCRIPTION Received is one container labeled with the patient's name and not further designated. The specimen consists of multiple irregular fragments of pink-ortiz soft tissue that in aggregate measure 2 x 1 x 0.1 cm. The specimen is totally submitted in one cassette. / AM:shaunna 03/27/21 TC:5 CPT: 91383
== END | disposition home or self-care (01) ==
PROVIDERS: PCP Family Medicine; Referring Provider Nurse Practitioner Women's Health; Visit Provider Nurse Practitioner Women's Health
DX: N95.0 Postmenopausal bleeding (principal)
CPT/HCPCS: 88305

== ENCOUNTER → 2021-04-03 07:27 | Outpatient (CLI) | payer OTHER, SELFPAY ==
--- NOTE | 2021-04-03 07:29 | BI_ITS ---
MAMMOGRAPHY - BILATERAL SCREENING REASON FOR EXAM: Female, 55 years old. Routine annual screening examination. PERTINENT HISTORY: Non-contributory. TECHNIQUE: Digital bilateral breast arun (3D mammographic acquisition) in the CC and MLO projections. 2-D mediolateral oblique (MLO) and craniocaudad (CC) views of both breasts were obtained. CAD: Full Field Digital Mammography with Computer Added Detection was performed. COMPARISON: Comparison is made with prior study dated 08/25/2018 and 07/10/2016. FINDINGS: Breast Composition: The breasts are heterogeneously dense, which may obscure small masses. There are no dominant masses or suspicious calcifications. Stable benign-appearing bilateral axillary lymph nodes. No other significant abnormalities are identified. There has been no significant change since the prior study. BI/SCRN MAMM (CAD)W/ARUN BILAT IMPRESSION: Stable bilateral screening mammogram. Yearly follow-up mammogram recommended. (A) ASSESSMENT CATEGORY: BIRADS Category 2: Benign. A letter regarding these results will be sent to the patient by the facility within 30 days. Approximately 10% of breast cancers are not detected by mammography. A normal mammogram should not delay biopsy of a clinically suspicious abnormality. [id number] Electronically Signed: Johnatohn Kiran MD at 8:52 EST , Service support ,
== END ==
PROVIDERS: PCP Family Medicine; Referring Provider Nurse Practitioner Women's Health; Visit Provider Nurse Practitioner Women's Health
DX: Z12.31 Encounter for screening mammogram for malignant neoplasm of breast (principal)
CPT/HCPCS: 77063; 77067

== ENCOUNTER → 2021-04-04 11:01 | Outpatient (CLI) | payer OTHER, SELFPAY ==
--- NOTE | 2021-04-04 11:14 | US_ITS ---
STUDY: ULTRASOUND OF THE FEMALE PELVIS - COMPLETE REASON FOR EXAM: Female, 55 years old. Pelvic pain and fullness LMP: 03/14/2021 TECHNIQUE: Transabdominal and Transvaginal TECHNICAL QUALITY: Adequate. COMPARISON: None. FINDINGS: The uterus is anteverted and is in a midline position. The uterus measures 9.2 x 5.1 x 4.4 cm. Normal uterine cervix. The endometrium measures 8.6 mm in thickness, and is heterogeneous (striated). There is no demonstrated endometrial mass. There is a 2.1 cm fibroid. I.U.D. - The patient does not have an I.U.D. The right ovary is visualized. The right ovary measures 3.2 x 2.5 x 2 cm. There is a 0.9 x 1.0 x 0.8 cm paraovarian cyst. There is normal arterial and normal venous vascularity. The left ovary is nonvisualized. There are dilated vessels adjacent to the left ovary. There is no fluid in the cul-de-sac. The bladder is sonographically normal US/Transvaginal Non- IMPRESSION: Small uterine fibroid, endometrium is normal thickness for a still menstruating female Simple 1 cm right paraovarian cyst. Given patient''s age, short-term follow-up is recommended to show resolution Dilated serpiginous vessels adjacent to the left ovary Electronically Signed: Pablo Marinelli MD at 10:43 EST , Service support ,
--- NOTE | 2021-04-04 11:14 | US_ITS ---
STUDY: ULTRASOUND OF THE FEMALE PELVIS - COMPLETE REASON FOR EXAM: Female, 55 years old. Pelvic pain and fullness LMP: 03/14/2021 TECHNIQUE: Transabdominal and Transvaginal TECHNICAL QUALITY: Adequate. COMPARISON: None. FINDINGS: The uterus is anteverted and is in a midline position. The uterus measures 9.2 x 5.1 x 4.4 cm. Normal uterine cervix. The endometrium measures 8.6 mm in thickness, and is heterogeneous (striated). There is no demonstrated endometrial mass. There is a 2.1 cm fibroid. I.U.D. - The patient does not have an I.U.D. The right ovary is visualized. The right ovary measures 3.2 x 2.5 x 2 cm. There is a 0.9 x 1.0 x 0.8 cm paraovarian cyst. There is normal arterial and normal venous vascularity. The left ovary is nonvisualized. There are dilated vessels adjacent to the left ovary. There is no fluid in the cul-de-sac. The bladder is sonographically normal US/Pelvic (Non ) IMPRESSION: Small uterine fibroid, endometrium is normal thickness for a still menstruating female Simple 1 cm right paraovarian cyst. Given patient''s age, short-term follow-up is recommended to show resolution Dilated serpiginous vessels adjacent to the left ovary Electronically Signed: Pablo Marinelli MD at 10:43 EST , Service support ,
== END ==
PROVIDERS: PCP Family Medicine; Referring Provider Nurse Practitioner Women's Health; Visit Provider Nurse Practitioner Women's Health
DX: N83.209 Unspecified ovarian cyst, unspecified side (principal)
CPT/HCPCS: 76830; 76856

== ENCOUNTER 2021-06-19 12:29 | Outpatient (CLI) | payer OTHER, SELFPAY ==
--- NOTE | 2021-06-19 12:31 | US_ITS ---
STUDY: ULTRASOUND OF THE FEMALE PELVIS - COMPLETE REASON FOR EXAM: Female, 56 years old. ovarian cyst TECHNIQUE: Transabdominal COMPARISON: Apr 04 2021 11:42am FINDINGS: The uterus is anteverted and is in a midline position. The uterus measures 8.1 x 5 cm. There is a Nabothian cyst of the cervix. The endometrium measures 4 mm in thickness, and is hyperechoic. There is no demonstrated endometrial mass. Fibroid visualized measuring 17 x 16 mm. I.U.D. - The patient does not have an I.U.D. The right ovary is visualized. The right ovary measures 2.2 x 3 cm. There is no right ovarian cyst or ovarian mass. There is no visualized right adnexal mass or complex lesion. There is normal arterial and normal venous vascularity. The left ovary is visualized. The left ovary measures 2.9 x 3.1 cm. There is no left ovarian cyst or ovarian mass. There is no visualized left adnexal mass or complex lesion. There is normal arterial and normal venous vascularity. There is no fluid in the cul-de-sac. US/Transvaginal Non- IMPRESSION: There is a Nabothian cyst of the cervix. Fibroid visualized in the uterus. Non visualized right ovary cyst. This can also represent resolution of the cyst. Electronically Signed: Josr Mack MD at 16:59 EST ,
--- NOTE | 2021-06-19 12:31 | US_ITS ---
STUDY: ULTRASOUND OF THE FEMALE PELVIS - COMPLETE REASON FOR EXAM: Female, 56 years old. ovarian cyst TECHNIQUE: Transabdominal COMPARISON: Apr 04 2021 11:42am FINDINGS: The uterus is anteverted and is in a midline position. The uterus measures 8.1 x 5 cm. There is a Nabothian cyst of the cervix. The endometrium measures 4 mm in thickness, and is hyperechoic. There is no demonstrated endometrial mass. Fibroid visualized measuring 17 x 16 mm. I.U.D. - The patient does not have an I.U.D. The right ovary is visualized. The right ovary measures 2.2 x 3 cm. There is no right ovarian cyst or ovarian mass. There is no visualized right adnexal mass or complex lesion. There is normal arterial and normal venous vascularity. The left ovary is visualized. The left ovary measures 2.9 x 3.1 cm. There is no left ovarian cyst or ovarian mass. There is no visualized left adnexal mass or complex lesion. There is normal arterial and normal venous vascularity. There is no fluid in the cul-de-sac. US/Pelvic (Non ) IMPRESSION: There is a Nabothian cyst of the cervix. Fibroid visualized in the uterus. Non visualized right ovary cyst. This can also represent resolution of the cyst. Electronically Signed: Josr Mack MD at 16:59 EST ,
== END 2021-06-19 23:59 | disposition home or self-care (01) ==
LOC: OPUS 12:30
PROVIDERS: PCP Family Medicine; Visit Provider Nurse Practitioner Women's Health
DX: N83.209 Unspecified ovarian cyst, unspecified side (principal)
CPT/HCPCS: 76830; 76856

== ENCOUNTER → 2022-01-24 | Outpatient (CLI) | payer OTHER, SELFPAY ==
--- NOTE | 2022-01-24 11:23 | EKG12_ITS ---
Test Reason : PREOP Blood Pressure : / mmHG Vent. Rate : 068 BPM Atrial Rate : 068 BPM P-R Int : 146 ms QRS Dur : 082 ms QT Int : 384 ms P-R-T Axes : 036 -14 005 degrees QTc Int : 408 ms Normal sinus rhythm Normal ECG Confirmed by RAHEEM WIGGINS, HSIV ([id number]), electronic news gathering editor BEN KURTZ ([id number]) on 01/25/2022 8:03:20 AM Referred By: Meliton Merida Confirmed By:ARACELI MACIEL MD
[2022-01-24 11:56] LABS: Hematocrit 42.9 % (37-47); Hemoglobin 13.3 g/dL (12.0-15.0); Mean Corpuscular Hgb 25.8 pg (27.0-32.0); Mean Corpuscular Volume 83.3 fL (81-99); Mean Platelet Vol. 10.7 fl (6.2-12.0); Platelet Count 250 K/mm3 (150-450); RBC Distribution Width CV 14.7 % (11.6-14.6); RBC Distribution Width SD 44.7 fl (35.1-43.9); Red Blood Count 5.15 M/mm3 (4.2-5.4); White Blood Count 8.4 K/mm3 (4.4-11.0)
[2022-01-24 12:51] LABS: Anion Gap 6 (5-15); BUN 18 mg/dL (7-18); Calcium,Total 9.4 mg/dL (8.5-10.1); Chloride 106 mmol/L (98-107); Creatinine, Serum 0.86 mg/dL (0.55-1.02); EST Glomerular Filtration Rate 73 mL/min (>60); Est Glom Filt Rate - Afr Amer 88 mL/min (>60); Glucose 114 mg/dL (74-106); Potassium 4.1 mmol/L (3.5-5.1); Sodium Level 142 mmol/L (136-145)
== END | disposition home or self-care (01) ==
LOC: PSN 11:21
PROVIDERS: PCP Family Medicine; Referring Provider Physician Assistant; Visit Provider Physician Assistant
DX: Z01.810 Encounter for preprocedural cardiovascular examination (principal)
CPT/HCPCS: 36415; 80048; 85027; 93005

== ENCOUNTER → 2022-04-10 | Outpatient (CLI) | payer OTHER, SELFPAY ==
--- NOTE | 2022-04-10 12:18 | BI_ITS ---
MAMMOGRAPHY - BILATERAL SCREENING REASON FOR EXAM: Female, 56 years old. Routine annual screening examination. PERTINENT HISTORY: Non-contributory. TECHNIQUE: Digital bilateral breast arun (3D mammographic acquisition) in the CC and MLO projections. 2-D mediolateral oblique (MLO) and craniocaudad (CC) views of both breasts were obtained. CAD: Full Field Digital Mammography with Computer Added Detection was performed. COMPARISON: 04/03/2021, 08/25/2018. FINDINGS: Breast Composition: The breasts are heterogeneously dense, which may obscure small masses. There are no dominant masses or suspicious calcifications. Stable benign-appearing bilateral axillary lymph nodes. No other significant abnormalities are identified. There has been no significant change since the prior study. BI/SCRN MAMM (CAD)W/ARUN BILAT IMPRESSION: Stable bilateral screening mammogram. Yearly follow-up mammogram recommended. (A) ASSESSMENT CATEGORY: BIRADS Category 2: Benign. A letter regarding these results will be sent to the patient by the facility within 30 days. Approximately 10% of breast cancers are not detected by mammography. A normal mammogram should not delay biopsy of a clinically suspicious abnormality. Electronically Signed: Sacha Sanders, at 10:55 EST ,
== END | disposition home or self-care (01) ==
LOC: OPBI 12:16
PROVIDERS: PCP Family Medicine; Visit Provider Nurse Practitioner Women's Health
DX: Z12.31 Encounter for screening mammogram for malignant neoplasm of breast (principal)
CPT/HCPCS: 77063; 77067

== ENCOUNTER 2022-06-18 16:04 | Emergency (ER) | payer OTHER, SELFPAY ==
[2022-06-18 16:05] VITALS: BP 168/77; PULSE 78; RESP 18; TEMP 36.4; O2SAT 98; BMI 33.3
--- NOTE | 2022-06-18 16:17 | EDS_ITS ---
HPI History of Present Illness Chief Complaint: Flank Pain Narrative Narrative: Patient presents with right flank and right lower quadrant abdominal pain for about 6 days. Pain waxes and wanes, she had did notice some hematuria. She has a history of kidney stones and she feels similar. No fevers or chills. No left-sided pain. [facility] Medical History (Updated 06/18/22 @ 18:[address] Lake Young MD) Acid reflux Hyperglycemia Kidney stones Home Medications biotin 1 mg capsule 1 mg PO DAILY 07/22/18 [History Last Taken Unknown] cholecalciferol (vitamin D3) 25 mcg (1,000 unit) capsule 1,000 unit PO DAILY 07/22/18 [History Last Taken Unknown] cyanocobalamin (vitamin B-12) 1,000 mcg capsule 1,000 mcg PO DAILY 07/22/18 [History Last Taken Unknown] vitamin A 2,400 mcg capsule 8,000 unit PO DAILY 07/22/18 [History Last Taken Unknown] multivitamin 1 tab PO DAILY 06/29/20 [History Last Taken Unknown] ondansetron 4 mg disintegrating tablet 4 mg PO Q8H PRN PRN Nausea #10 tabs 06/18/22 [Rx Last Taken Unknown] oxycodone-acetaminophen 5 mg-325 mg tablet (Endocet) 1 tab PO Q8H PRN pain 3 days #12 tabs 06/18/22 [Rx Last Taken Unknown] Allergy/AdvReac Type Severity Reaction Status Date / Time morphine Allergy LOW BP AND Verified 06/18/22 16:07 HR Family History Mother Cancer lung-smoker Father Atrophic emphysema Thyroid disorder Sister Thyroid disorder Surgical History delivery delivered Hx of appendectomy Hx of cholecystectomy Hx of umbilical hernia repair Social History number of children: 6 Smoking Status: Never smoker alcohol intake: never substance use type: does not use caffeine: Yes what type of physical activity do you participate in: walking seatbelt use: always do you feel safe at home: Yes additional social history: [employer] 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 She has some nausea. Genitourinary: Some hematuria Musculoskeletal: Denies myalgias no difficulty with ambulation Skin: No rash EXAM Physical Exam Narrative Exam Narrative: Physical exam General: Patient appears somewhat uncomfortable Head: Normocephalic, Atraumatic Neck: Supple, Nontender, No lymphadenopathy Cardiovascular: Regular rate, Regular rhythm Respiratory: No distress, CTA bilaterally Abdomen: Soft, right-sided abdominal pain and right CVA tenderness. Back: Nontender, Normal Inspection. Nontender Extremities: Nontender, No edema Skin: Normal color, No rash Const Vital Signs: 06/18/22 16:05 Temperature 97.5 F L Temperature Source Temporal Pulse Rate 78 Respiratory Rate 18 Blood Pressure 168/77 H Blood Pressure Mean 107 Pulse Ox 98 Oxygen Delivery Method Room Air MDM MDM MDM Narrative Medical decision making narrative: A. Problems addressed Patient has prior kidney stones. She told me she felt like a kidney stone however I did rule out appendicitis and and colitis. She is given analgesia and antiemetics. She improved I also gave her NSAIDs. She is found to have a 6 mm UVJ stone. She has an appointment with Dr. Delgado on June 24. I told her if anything changes she is to return. Otherwise she is to keep her appointment. She will be given opiate analgesics for home, [place] as well as Zofran. B. Amount and/or complexity of the data (2 out of 3) 1. I discussed with the who was in the room I interpreted CBC CMP and urinalysis 2. I independently interpreted the CT scan and it showed a 3 mm stone, she also has other stones in her kidneys that are not obstructing. Differential diagnosis: See above I have thought about admitting the patient initially since she is almost at a week of a kidney stone but she wants to be discharged to talk to her and her about outpatient management which she is comfortable with. Lab Data Labs: Laboratory Results - last 24 hr 06/18/22 06/18/22 06/18/22 16:20 16:20 16:25 WBC 9.1 RBC 5.07 Hgb 13.3 Hct 43.0 MCV 84.8 MCH 26.2 L MCHC 30.9 L RDW Std Deviation 43.4 RDW Coeff of Zaria 14.0 Plt Count 259 MPV 10.6 Immature Gran % (Auto) 0.200 Neut % (Auto) 58.6 Lymph % (Auto) 27.3 [place] % (Auto) 9.4 Eos % (Auto) 3.8 Baso % (Auto) 0.7 Absolute Neuts (auto) 5.3 Absolute Lymphs (auto) 2.47 Nucleated RBC % 0 Sodium 142 Potassium 4.2 Chloride 107 Carbon Dioxide 29.0 Anion Gap 6 BUN 13 Creatinine 0.84 Estim Creat Clear Calc 66.49 Est GFR (MDRD) Af Amer 90 Est GFR (MDRD) Non-Af 74 BUN/Creatinine Ratio 15.5 Glucose 94 Calcium 9.2 Total Bilirubin 0.40 AST 18 ALT 20 Alkaline Phosphatase 95 Total Protein 7.3 Albumin 3.8 Globulin 3.5 Albumin/Globulin Ratio 1.1 Urine Color Yellow Urine Clarity Clear Urine pH 7.0 Ur Specific [place] 1.010 Urine Protein Negative Urine Glucose (UA) Normal Urine Ketones Negative Urine Occult Blood 10 H Urine Nitrite Negative Urine Bilirubin Negative Urine Urobilinogen Normal Ur Leukocyte Esterase 25 H Urine RBC 0-5 SEEN Urine WBC 0-5 SEEN Ur Squamous Epith Cells 0-5 SEEN Urine Bacteria 0 SEEN Urine Mucus 0 SEEN Radiography Diagnostic Testing: Clinical Impression(s) from Imaging Studies Abdomen/Pelvis CT 06/18/22 17:01 IMPRESSION: Partially obstructing 6 mm distal right ureteral calculus. Electronically Signed: Ej Carter MD at 18:16 EST Reading Location ID and State: [facility] / [place] Tel , Service support , Discharge Plan Triage Chief Complaint: Flank Pain ED Provider: Lake Young Dx/Rx/DC Orders Clinical Impression: Kidney calculi, Acute flank pain Instructions: ED Kidney Stone w/ Colic Prescriptions: New oxycodone-acetaminophen [Endocet] 5-325 mg tablet 1 tab PO Q8H PRN (Reason: pain) 3 Days Qty: 12 0RF ondansetron 4 mg tablet,disintegrating 4 mg PO Q8H PRN PRN (Reason: Nausea) Qty: 10 0RF No Action vitamin A 8,000 unit capsule 8,000 unit PO DAILY cyanocobalamin (vitamin B-12) 1,000 mcg capsule 1,000 mcg PO DAILY cholecalciferol (vitamin D3) 1,000 unit capsule 1,000 unit capsule 1,000 unit PO DAILY biotin 1 mg capsule 1 mg PO DAILY multivitamin Tablet 1 tab PO DAILY Primary Care Provider: Effie Her Referrals: Effie Her MD [Primary Care Provider] - 3-5 Days Disposition Disposition: Home, Self Care
[2022-06-18] MEDS: HYDROmorphone 0.5 MG/0.5 ML SYRINGE IV (16:27)
[2022-06-18] MEDS: Ketorolac 15 MG/ML Vial IV (16:27)
[2022-06-18] MEDS: Ondansetron 4 MG/2 ML Vial IV (16:28)
[2022-06-18] MEDS: 0.9% Normal Saline 1,000 ML 1000 ML IV (16:28)
[2022-06-18 16:31] LABS: Bacteria 0 SEEN /hpf (None Seen); Mucous, Urine 0 SEEN /hpf (<or=2+)
[2022-06-18 16:33] LABS: Absolute Lymphocyte Count 2.47 X10^3/uL (0.83-4.51); Absolute Neutrophil Count 5.3 X10^3/uL (2.0-7.7); Basophil# 0.06 X10^3/uL; Basophil% 0.7 % (0-1); Eosinophil# 0.34 X10^3/uL; Eosinophils% 3.8 % (0-5); Hemoglobin 13.3 g/dL (12.0-15.0); Lymphocyte # 2.47 X10^3/ul (0.83-4.51); Lymphocyte % 27.3 % (19-41); Mean Corp Hgb Conc 30.9 g/dL (32-36); Mean Corpuscular Hgb 26.2 pg (27.0-32.0); Mean Corpuscular Volume 84.8 fL (81-99); Mean Platelet Vol. 10.6 fl (6.2-12.0); Monocyte# 0.85 X10^3/uL; Monocyte% 9.4 % (0-10); NRBC Flagged by Analyzer 0 % (0-5); Neutrophil # 5.32 X10^3/uL (2.7-7.7); Neutrophil % 58.6 % (47-70); Platelet Count 259 K/mm3 (150-450); RBC Distribution Width SD 43.4 fl (35.1-43.9); Red Blood Count 5.07 M/mm3 (4.2-5.4); White Blood Count 9.1 K/mm3 (4.4-11.0)
[2022-06-18 16:35] LABS: Color, Urine Yellow (Yellow); Glucose, Dipstick Normal (Normal); Ketone-Dipstick Negative (Negative); Leukocyte Esterase-Dipstick 25 /ul (Negative); Nitrite-Dipstick Negative (Negative); Occult Blood-Urine 10 /ul (Negative); Protein-Dipstick Negative (Negative); Urine Bilirubin Dipstick Negative (Negative); Urine Clarity Clear (Clear); Urine Urobilinogen Normal (Normal)
[2022-06-18 16:40] LABS: Red Blood Cells-Urine 0-5 SEEN /hpf (0-5); Squamous Epithelial Cells - UA 0-5 SEEN /hpf (5-10); White Blood Cells 0-5 SEEN /hpf (0-5)
[2022-06-18 16:53] LABS: ALB/GLOB Ratio 1.1 RATIO (0.9-2.4); AST(SGOT) 18 U/L (15-37); Alanine Aminotransfer ALT/SGPT 20 U/L (13-56); Albumin, Serum 3.8 g/dL (3.2-5.0); Alkaline Phosphatase 95 U/L (45-117); Anion Gap 6 (5-15); BUN 13 mg/dL (7-18); BUN/Creat Ratio 15.5 RATIO (10-20); Calcium,Total 9.2 mg/dL (8.5-10.1); Chloride 107 mmol/L (98-107); Creatinine, Serum 0.84 mg/dL (0.55-1.02); EST Glomerular Filtration Rate 74 mL/min (>60); Est Glom Filt Rate - Afr Amer 90 mL/min (>60); Estimated Creatinine Clearance 66.49 ml/min; Globulin 3.5 g/dL (2.2-4.2); Glucose 94 mg/dL (74-106); Potassium 4.2 mmol/L (3.5-5.1); Protein, Total 7.3 g/dL (6.4-8.2); Sodium Level 142 mmol/L (136-145)
--- NOTE | 2022-06-18 17:01 | CT_ITS ---
INDICATION: Right flank pain EXAMINATION: CT ABDOMEN AND PELVIS WITHOUT CONTRAST - CT Abdomen And Pelvis W/O Contrast Injection TECHNIQUE: Helically acquired images were obtained of the abdomen and pelvis without oral or IV contrast. A radiation dose optimization technique was used for this scan. IV Contrast dosage and agent: None. Oral contrast: None. COMPARISON: 06/15/2014 FINDINGS: LOWER CHEST: Lung bases are clear. No cardiomegaly or pericardial effusion. LIVER: Diffuse low-attenuation consistent with steatosis. No focal mass. GALLBLADDER AND BILIARY TREE: Cholecystectomy. Stable dilatation of the common bile duct. PANCREAS: No focal cystic or solid mass. SPLEEN: Normal size without focal cystic or solid mass. ADRENAL GLANDS: No nodules. KIDNEYS AND URETERS: Bilateral nonobstructing renal calculi. Right hydroureteronephrosis with 6 mm calculus in the distal right ureter at the UVJ. PERITONEUM: No ascites or free air. BOWEL: Prior appendectomy. No stomach or bowel distension. No focal inflammatory change. LYMPH NODES: No enlarged mesenteric or retroperitoneal lymph nodes. VESSELS: Aorta is non-dilated. URINARY BLADDER: Unremarkable. REPRODUCTIVE ORGANS: No pelvic masses. ABDOMINAL WALL: Stable surgical changes from prior ventral hernia repair. BONES: No acute or aggressive abnormality. CT/Abdomen/Pelvis without Cont IMPRESSION: Partially obstructing 6 mm distal right ureteral calculus. Electronically Signed: Ej Carter MD at 18:16 EST ,
[2022-06-18 19:00] VITALS: BP 111/56; PULSE 71; RESP 16; O2SAT 97
== END 2022-06-18 19:13 | disposition home or self-care (01) ==
PROVIDERS: Emergency Provider Emergency Medicine; PCP Family Medicine; Visit Provider Emergency Medicine
DX: N20.2 Calculus of kidney with calculus of ureter (principal)
CPT/HCPCS: 74176; 80053; 81001; 85025; 96361; 96374; 96375; 99283; J7030; A4216; J2405

== ENCOUNTER → 2022-06-24 | Outpatient (CLI) | payer OTHER, SELFPAY | END | disposition home or self-care (01) | LOC: LABSPEC 16:59 | PROVIDERS: PCP Family Medicine; Visit Provider Urology | DX: N20.1 Calculus of ureter (principal) | CPT/HCPCS: 82360 ==

== ENCOUNTER → 2023-03-12 | Outpatient (CLI) | payer OTHER, SELFPAY ==
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
== END | disposition home or self-care (01) ==
LOC: MTLAB 17:20 → MTRAD 17:21
PROVIDERS: PCP Family Medicine; Referring Provider Family Medicine; Visit Provider Family Medicine
DX: M25.572 Pain in left ankle and joints of left foot (principal); M54.2 Cervicalgia
CPT/HCPCS: 72050; 73610

== ENCOUNTER → 2023-06-03 | Outpatient (CLI) | payer OTHER, SELFPAY | END | disposition home or self-care (01) | LOC: LABSPEC 15:18 | PROVIDERS: PCP Family Medicine; Referring Provider Family Medicine; Visit Provider Family Medicine | DX: R30.0 Dysuria (principal) | CPT/HCPCS: 87077; 87086; 87088; 87186 ==

== ENCOUNTER → 2023-07-16 | Outpatient (CLI) | payer OTHER, SELFPAY ==
--- NOTE | 2023-07-16 13:44 | RAD_ITS ---
STUDY: X-RAY - RIGHT SHOULDER REASON FOR EXAM: Female, 58 years old. Pain. TECHNIQUE: 4 views of the right shoulder. COMPARISON: None. FINDINGS: Normal glenohumeral articulation. There is mild acromioclavicular arthrosis. Normal acromion. Normal humeral head and visualized proximal humerus. The soft tissue structures are unremarkable. There is no demonstrated fracture. Normal visualized pulmonary apex. RAD/Shoulder min 2 Views
== END | disposition home or self-care (01) ==
PROVIDERS: PCP Family Medicine; Referring Provider Family Medicine; Visit Provider Family Medicine
DX: M25.511 Pain in right shoulder (principal)
CPT/HCPCS: 73030

== ENCOUNTER → 2023-11-10 | Outpatient (CLI) | payer OTHER, SELFPAY ==
--- NOTE | 2023-11-10 16:10 | BI_ITS ---
MAMMOGRAPHY - BILATERAL SCREENING REASON FOR EXAM: Female, 58 years old. Routine annual screening examination. PERTINENT HISTORY: Non-contributory. TECHNIQUE: Digital bilateral breast arun (3D mammographic acquisition) in the CC and MLO projections. 2-D mediolateral oblique (MLO) and craniocaudad (CC) views of both breasts were obtained. CAD: Full Field Digital Mammography with Computer Added Detection was performed. COMPARISON: Comparison is made with prior study dated April 10, 2022 and April 03, 2021. FINDINGS: Breast Composition: The breasts are heterogeneously dense, which may obscure small masses. There are no dominant masses or suspicious calcifications. Stable bilateral fat containing axillary lymph nodes. No other significant abnormalities are identified. There has been no significant change since the prior study. BI/SCRN MAMM (CAD)W/ARUN BILAT IMPRESSION: Stable bilateral screening mammogram. Yearly follow-up mammogram recommended. (A) ASSESSMENT CATEGORY: BIRADS Category 2: Benign. A letter regarding these results will be sent to the patient by the facility within 30 days. Approximately 10% of breast cancers are not detected by mammography. A normal mammogram should not delay biopsy of a clinically suspicious abnormality. [id number] Electronically Signed: Johnathon Kiran MD at 8:33 EDT ,
== END | disposition home or self-care (01) ==
LOC: OPBI 11-11 06:57
PROVIDERS: PCP Family Medicine; Referring Provider Family Medicine; Visit Provider Family Medicine
DX: Z12.31 Encounter for screening mammogram for malignant neoplasm of breast (principal)
CPT/HCPCS: 77063; 77067

== ENCOUNTER → 2024-08-19 | Outpatient (CLI) | payer OTHER, SELFPAY ==
[2024-08-24 12:08] LABS: HPV APTIMA, High Risk Negative (Negative)
== END | disposition home or self-care (01) ==
LOC: LABSPEC 16:27
PROVIDERS: PCP Family Medicine; Referring Provider Nurse Practitioner Family; Visit Provider Nurse Practitioner Family
DX: Z12.4 Encounter for screening for malignant neoplasm of cervix (principal)
CPT/HCPCS: 87624; 88175; G0145

== ENCOUNTER → 2024-12-16 | Outpatient (CLI) | payer OTHER, SELFPAY ==
--- OUTSIDE RECORDS SUMMARY | 2024-12-16 07:08 | XMS RPT_ITS | CCD ---
Author Organization [facility] Care Team Providers Care Faculty Dean Name Role Phone Dr. Effie Her Primary Care Provider Dr. Rylan Issa Attending Provider [phone] JUDITH Barone Referring Provider [phone] ALEX WIGGINS, DR RAJESH FRIAS Attending Dain HER MD, DR DAVIS Primary Care Unavailable ALEX WIGGINS, DR RAJESH FRIAS Attending Dain HER MD, DR DAVIS Primary Care Unavailable Dr. Effie Her Referring Provider [phone] Donnie BONILLA, ROSS FURNACE OPERATOR-C Brandy Attending Provider Dr. Effie Her Primary Care Provider Dr. Kim Hackett Attending Provider Dr. Effie Her Primary Care Provider Dr. Effie Her Referring Provider [phone] Donnie BONILLA, IRENE-C Brandy Attending Provider Dr. iKm Hackett Attending Provider Dr. Effie Her MD Primary Care Provider Dr. Effie Her MD Referring Provider Felicia Contreras Attending Provider Michele BONILLA-CFelicia Referring Provider Felicia Bautista Attending Unavailable Effie Her Primary Care Unavailable Effie Her Referring Unavailable Felicia Bautista Attending Unavailable Felicia Bautista Referring Unavailable JoEffie srivastava Primary Care Unavailable Brandy Fields NP Attending Unavailable Brandy Fields NP Referring Unavailable Micky Price Primary Care Unavailable Allergies Allergy Classification Reported Allergen(s) Allergy Type Date of Onset Reaction(s) Facility (8 sources) Morphine Drug Allergy 03-27-2021 LOW BP AND HR [facility] Comment on above: LOW bBP (1 source) Morphine Drug Allergy 08-19-2024 [facility] Repository Medications Current Medications Medication Drug Class(es) Dates Sig (Normalized) Sig (Original) biotin 1 mg oral capsule (8 sources) Start: 07-22-2018 take 1 capsule by mouth once daily Biotin 1 mg capsule Active 1 mg PO DAILY July 22, 2018 12:00am cholecalciferol 0.025 mg oral capsule (8 sources) Vitamin D Start: 07-22-2018 take 1 capsule by mouth once daily Cholecalciferol (Vitamin D3) 1,000 unit capsule Active 1000 U PO DAILY July 22, 2018 12:00am Multivitamin preparation (7 sources) Start: 06-29-2020 take 1 tablet by mouth once daily Multivitamin Active 1 TABLET PO DAILY June 28, 2020 11:00pm Start: 06-29-2020 take 1 tablet by jung th once daily Multivitamin Active 1 TABLET PO DAILY June 29, 2020 12:00am Multivitamin tablet (1 source) Start: 06-29-2020 Multivitamin t ablet Active 1 {tbl} PO DAILY June 29, 2020 12:00am prednisoLONE 5 mg oral tablet (2 sources) Corticosteroid Start: 07-21-2023 take 1 tablet by mouth once daily Prednisolone 5 mg tablet Active 5 mg PO DAILY July 21, 2023 12:00am vitamin a 2.4 mg oral capsule (8 sources) Vitamin A Start: 07-22-2018 Vitamin A 8,00 0 unit capsule Active 8000 U PO DAILY July 22, 2018 12:00am vitamin b12 1 mg oral capsule (8 sources) Vitamin B12 Start: 07-22-2018 take 1 capsule by mouth once daily Cyanocobalamin (Vitamin B-12) 1,000 mcg capsule Active 1000 ug PO DAILY July 22, 2018 12:00am Completed/Discontinued Medications Medication Drug Class(es) Dates Sig (Normalized) Sig (Original) acetaminophen 325 mg / oxyCODONE hydrochloride 5 mg oral tablet (14 sources) Opioid Agonist Start: 06-18-2022 End: 05-23-2023 Oxycodone-Acetamino phen (Endocet) 5-325 mg tablet Discontinued 1 {tbl} PO Q8H as needed for pain 12 June 18, 2022 May 23, 2023 9:35am Start: 08-31-2013 End: 07-09-2018 Oxycodone-Acetaminophen 1 TA BLET tablet Discontinued 1 - 2 {tbl} PO EVERY 4 HOURS NEEDED as needed for Pain August 31, 2013 12:00am July 09, 2018 1:16pm Start: 08-31-2013 End: 07-09-2018 take 1 tablet by mouth every four hours as needed Oxycodone-Acetaminophen Discontinued 1 - 2 TABLET PO EVERY 4 HOURS NEEDED August 31, 2013 12:00am July 09, 2018 1:16pm amoxicillin 250 mg chewable tablet (8 sources) Penicillin-class Antibacterial Start: 08-27-2013 End: 07-09-2018 take 2 tablets by mouth three times daily Amoxicillin 250 MG tablet,chewable Discontinued 500 mg PO THREE TIMES A DAY August 27, 2013 12:00am July 09, 2018 1:15pm Start: 08-27-2013 End: 07-09-2018 take 500 mg by mouth three times daily Amoxicillin Discontinued 500 MG PO THREE TIMES A DAY August 27, 2013 12:00am July 09, 2018 1:15pm ciprofloxacin 500 mg oral tablet (8 sources) Quinolone Antimicrobial Start: 08-25-2013 End: 08-27-2013 take 1 tablet by mouth twice daily Ciprofloxacin Hcl 500 MG tablet Discontinued 500 mg PO TWICE A DAY August 25, 2013 12:00am August 27, 2013 7:56pm diphenhydrAMINE hydrochloride 25 mg oral capsule (8 sources) Histamine-1 Receptor Antagonist Start: 10-15-2014 End: 07-09-2018 take 2 capsules by mouth three times daily as needed Diphenhydramine Hcl 25 MG capsule Discontinued 50 mg PO 3 TIMES DAILY NEEDED as needed for Allergies October 15, 2014 12:00am July 09, 2018 1:15pm Start: 10-15-2014 End: 07-09-2018 take 50 mg by mouth three times daily as needed Diphenhydramine Hcl Discontinued 50 MG PO 3 TIMES DAILY NEEDED October 15, 2014 12:00am July 09, 2018 1:15pm famotidine 20 mg oral tablet (16 sources) Histamine-2 Receptor Antagonist Start: 04-12-2019 End: 06-29-2020 Famotidine 20 MG tablet Discontinued 20 mg PO TWICE A DAY April 12, 2019 1:00am June 29, 2020 3:37pm Take BID x 2 weeks then can go to daily if symptoms are controlled Start: 10-15-2014 End: 07-09-2018 take 1 tablet by mouth twice daily Famotidine 20 MG tablet Discontinued 20 mg PO TWICE A DAY October 15, 2014 12:00am July 09, 2018 1:16pm ketorolac tromethamine 10 mg oral tablet (8 sources) Nonsteroidal Anti-inflammatory Drug, Cyclooxygenase Inhibitor Start: 08-31-2013 End: 07-09-2018 take 1 tablet by mouth every six hours Ketorolac 10 MG tablet Discontinued 10 mg PO EVERY 6 HOURS August 31, 2013 12:00am July 09, 2018 1:16pm omeprazole 40 mg delayed release oral capsule (8 sources) Proton Pump Inhibitor Start: 08-25-2013 End: 07-09-2018 take 1 capsule by mouth once daily Omeprazole 40 MG capsule Discontinued 40 mg PO DAILY August 25, 2013 12:00am July 09, 2018 1:16pm ondansetron 4 mg disintegrating oral tablet (6 sources) Serotonin-3 Receptor Antagonist Start: 06-18-2022 End: 05-23-2023 take 1 tablet by mouth every eight hours as needed for nausea Ondansetron 4 mg tablet,disintegrat ing Discontinued 4 mg PO EVERY 8 HOURS NEEDED as needed for Nausea June 18, 2022 1:00am May 23, 2023 9:35am phenazopyridine hydrochloride 100 mg oral tablet (8 sources) Start: 08-31-2013 End: 07-09-2018 take 1 tablet by mouth three times daily Phenazopyridine 100 MG tablet Discontinued 100 mg PO THREE TIMES A DAY August 31, 2013 12:00am July 09, 2018 1:16pm phentermine hydrochloride 37.5 mg oral tablet (14 sources) Sympathomimetic Amine Anorectic Start: 02-20-2023 End: 02-20-2023 take 1 capsule by mouth once daily 30 minutes after breakfast Phentermine (Adipex-P) 37.5 mg capsule Discontinued 0 PO DAILY February 20, 2023 1:00am February 20, 2023 11:25am half tablet orally daily; must administer 30 minutes before or 1-2 hours after breakfast Start: 02-20-2023 End: 05-23-2023 take 0.5 tablet by mouth once daily 30 minutes after breakfast Phentermine 37.5 mg tablet Discontinued 0 PO DAILY April 22, 2023 5:01pm May 23, 2023 2:45pm half tablet po daily. must administer 30 minutes before or 1-2 hours after breakfast predniSONE 20 mg oral tablet (8 sources) Start: 10-15-2014 End: 07-09-2018 take 3 tablets by mouth once daily Prednisone 20 MG tablet Discontinued 60 mg PO DAILY October 15, 2014 12:00am July 09, 2018 1:16pm Start: 10-15-2014 End: 07-09-2018 take 60 mg by mouth once daily Prednisone Discontinued 60 MG PO DAILY October 15, 2014 12:00am July 09, 2018 1:16pm promethazine hydrochloride 25 mg oral tablet (8 sources) Phenothiazine Start: 08-25-2013 End: 07-09-2018 take 1 tablet by mouth every six hours as needed for nausea Promethazine 25 MG tablet Discontinued 25 mg PO EVERY 6 HOURS NEEDED as needed for Nausea August 25, 2013 12:00am July 09, 2018 1:16pm sucralfate 1000 mg oral tablet (8 sources) Aluminum Complex Start: 04-12-2019 End: 06-29-2020 Sucralfate 1 GM tablet Discontinued 1 NMA PO 4 TIMES DAILY 60 April 12, 2019 1:00am June 29, 2020 3:37pm Take 1 hour before meals and at bedtime Start: 04-12-2019 End: 06-29-2020 take 1 g by mouth four times daily 1 hour(s) before bedtime Sucralfate Discontinued 1 G PO 4 TIMES DAILY 60 April 12, 2019 1:00am June 29, 2020 3:37pm Take 1 hour before meals and at bedtime Problems Problem Classification Problem Date Documented Date Episodic/Chronic Abdominal pain (6 sources) Flank pain; Translations: [Unspecified abdominal pain] 06-18-2022 Episodic Calculus of urinary tract (6 sources) Kidney stone; Translations: [Calculus of kidney] 06-18-2022 Episodic Diabetes mellitus without complication (10 sources) Hyperglycemia; Translations: [Hyperglycemia, unspecified] 03-30-2019 Episodic Comment on above: weight reduction rec ommended Disorders of lipid metabolism (8 sources) Hyperlipidemia; Translations: [Hyperlipidemia, unspecified] 02-20-2023 Chronic Comment on above: weight reduction rec ommended Esophageal disorders (8 sources) Gastroesophageal reflux disease; Translations: [Gastro-esophageal reflux disease without esophagitis] 03-30-2019 Chronic Menopausal disorders (10 sources) Postmenopausal bleeding; Translations: [Postmenopausal bleeding] 03-27-2021 Chronic Comment on above: EMB nl Nonspecific chest pain (8 sources) Chest pain; Translations: [Chest pain, unspecified] 04-02-2021 Episodic Other complications of ; puerperium affecting management of mother (4 sources) delivery - delivered; Translations: [Encounter for delivery without indication] 03-30-2019 Episodic Other complications of ; puerperium affecting management of mother (4 sources) Deliveries by ; Translations: [Encounter for delivery without indication] 03-30-2019 Episodic Comment on above: x2 Other nutritional; endocrine; and metabolic disorders (4 sources) Obese class I; Translations: [Obesity, unspecified] 02-20-2023 Chronic Other nutritional; endocrine; and metabolic disorders (4 sources) Body mass index 30+ - obesity; Translations: [Body mass index (BMI) 32.0-32.9, adult] 02-20-2023 Chronic Comment on above: adipex, lose it [place], walking. fasting 14-16 hrSW:195.2 BMI 321//24: 194. discussed with her, cannot continue adipex- hasn't lost the recommended amount of weight. has been taking inconsistently and following nutritional plan inconsistently. would not recommend refilling. Other nutritional; endocrine; and metabolic disorders (7 sources) Body mass index (BMI) 32.0-32.9, adult; Translations: [Body Mass Index 32.0-32.9, adult] 02-20-2023 Chronic Other nutritional; endocrine; and metabolic disorders (7 sources) Obesity, unspecified; Translations: [Obesity, unspecified] 02-20-2023 Chronic Other screening for suspected conditions (not mental disorders or infectious disease) (3 sources) Encounter for screening mammogram for malignant neoplasm of breast; Translations: [Encounter for screening for malignant neoplasm of cervix] Onset: 08-19-2024 Episodic Ovarian cyst (8 sources) Cyst of ovary; Translations: [Unspecified ovarian cyst, unspecified side] 03-27-2021 Episodic Comment on above: Repeat US ordered Residual codes; unclassified (8 sources) History of repair of umbilical hernia; Translations: [Other specified postprocedural states] 03-30-2019 Episodic Comment on above: X2 Syncope (8 sources) Near syncope; Translations: [Syncope and collapse] 04-02-2021 Episodic Urinary tract infections (8 sources) Pyelonephritis; Translations: [Tubulo-interstitial nephritis, not specified as acute or chronic] 08-25-2013 Episodic Results Test Name Value Interpretation Reference Range Facility PAP IG HPV APTIMA 16/18,45on 08-24-2024 ADEQ Comment Normal . [facility] Comment on above: Order Comment: Speci men Comment: [id number] Specimen Comment: No. of containers..01 ThinPrep Vial Result Comment: Sati sfactory for evaluation. Endocervical and/or squamous metaplastic cells (endocervical component) are present. Performed By: #### L 7400.0280 #### [facility] [address] [place], [place], [id number] COMM . Normal . [facility] Comment on above: Order Comment: Speci men Comment: [id number] Specimen Comment: No. of containers..01 ThinPrep Vial Performed By: #### L 7400.0280 #### [facility] [address] [place], [place], [id number] COMMENT Comment Normal . [facility] Comment on above: Order Comment: Speci men Comment: [id number] Specimen Comment: No. of containers..01 ThinPrep Vial Result Comment: This liquid based ThinPrep(R) pap test was screened with the use of an image guided system. Performed By: #### L 7400.0280 #### [facility] [address] [place], [place], [id number] DIAG Comment Normal . [facility] Comment on above: Order Comment: Speci men Comment: [id number] Specimen Comment: No. of containers..01 ThinPrep Vial Result Comment: NEGA TIVE FOR INTRAEPITHELIAL LESION OR MALIGNANCY. Performed By: #### L 7400.0280 #### [facility] [address] [place], [place], [id number] HPV APTIMA, HR Negative Normal Negative [facility] Comment on above: Order Comment: Speci men Comment: [id number] Specimen Comment: No. of containers..01 ThinPrep Vial Result Comment: This nucleic acid amplification test detects fourteen high- risk HPV types (16,18,31,33,35,39,45,51,52,56,58,59,66,68) without differentiation. Performed By: #### L 7400.0280 #### [facility] [address] [place], [place], [id number] HPV Neva Rfx Comment Normal . [facility] Comment on above: Order Comment: Speci men Comment: [id number] Specimen Comment: No. of containers..01 ThinPrep Vial Result Comment: Crit eria not met, HPV Genotype not performed. Performed at: - [facility] [id number] Expediter Service Order: Keara Mak MD, Phone: [phone] Performed at: =G - [facility] [address] [id number] Expediter Service Order: Keara Mak MD, Phone: [phone] Performed By: #### L 7400.0280 #### [facility] [address] [place], [place], [id number] PAPSMR Comment Normal . [facility] Comment on above: Order Comment: Speci men Comment: [id number] Specimen Comment: No. of containers..01 ThinPrep Vial Result Comment: The Pap smear is a screening test designed to aid in the detection of premalignant and malignant conditions of the uterine cervix. It is not a diagnostic procedure and should not be used as the sole means of detecting cervical cancer. Both false-positive and false-negative reports do occur. Performed By: #### L 7400.0280 #### [facility] [address] [place], [place], [id number] PERFORM Comment Normal . [facility] Comment on above: Order Comment: Speci men Comment: [id number] Specimen Comment: No. of containers..01 ThinPrep Vial Result Comment: Teagan Arreola, Benefits Technician (ASCP) Performed By: #### L 7400.0280 #### [facility] [address] [place], [address] Cervical or vaginal specimen microscopic examination by liquid based cytology (reportOrdered By: Felicia Bautista on 08-19-2024 Cytology report Cyto stain.thin prep Doc (Cvx/Vag) Comment . [facility] Comment on above: Criteria not met, HP V Genotype not performed.Performed at: - [facility] [id number] Director: Keara Mak MD, Phone: [phone] at: = - [facility] [id number] Director: Keara Mak MD, Phone: [phone] Cervical or vagninal specime n microscopic examination by cytology stain (reported asOrdered By: Felicia Bautista on 08-19-2024 Cytology report Cyto stain Doc (Cvx/Vag) Comment . [facility] Comment on above: The Pap smear is a s creening test designed to aid in thedetection of premalignant and malignant conditions of theuterine cervix. It is not a diagnostic procedure andshould not be used as the sole means of detecting cervicalcancer. Both false-positive and false-negative reports dooccur. Detection in cervical specim en of any of human papilloma virus (HPV) 16, 18, 31, 33,Ordered By: Felicia Bautista on 08-19-2024 HPV 16+18+31+33+35+39+45+51+ 52+56+58+59+66+68 DNA Probe+sig amp Ql (Cvx) Negative Negative [facility] Comment on above: This nucleic acid am plification test detects fourteen high-risk HPV types (16,18,31,33,35,39,45,51,52,56,58,59,66,68)without differentiation. Laboratory - CytologyOrdered By: Felicia Bautista on 08-19-2024 Benefits Technician Cyto stain Nom (Cvx/Vag) [ID] Comment . [facility] Comment on above: Robbi Pearl ytologist (ASCP) Laboratory - Miscellaneous t estsOrdered By: Felicia Bautista on 08-19-2024 Service comment (Unsp spec) [Interp] . . [facility] No Panel InformationOrdered By: Felicia Bautista on 08-19-2024 Pap Smear Specimen Adequacy Comment . [facility] Comment on above: Satisfactory for jimenez luation. Endocervical and/or squamous metaplasticcells (endocervical component) are present. 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) Payment Analyst Required: No Is patient in pain?: No Allergies morphine Allergy (Verified 08/19/24 14:22) LOW BP AND HR Medications ???Medication ???Instructions ???Recorded ???Confirmed ???Type biotin 1 mg capsule 1 mg PO DAILY 07/22/18 08/19/24 Hi story cholecalciferol (vitamin D3) 25 1,000 unit PO DAILY 07/22/1808/19 History mcg (1,000 unit) capsule cyanocobalamin (vitamin B-12) 1,000 mcg PO DAILY 07/22/18 History 1,000 mcg capsule vitamin A 2,400 mcg capsule 8,000 unit PO DAILY 07/22/1808/19 History multivitamin 1 tab PO DAILY 06/29/20 08/19/24 H istory phentermine 37.5 mg tablet See Rx Instructions PO DAILY #15 0 05/23/23 08/19/24 Rx tabs prednisolone 5 mg tablet 5 mg PO DAILY 07/21/23 08/19/24 Hi story PFSH Medical History Kidney stones Postmenopausal bleeding Hyperglycemia Acid reflux Surgical History S/p bilateral blepharoplasty Hx of umbilical hernia repair delivery delivered Hx of appendectomy Hx of cholecystectomy Family History Mother Cancer lung-smoker Father Atrophic emphysema Thyroid disorder Sister Thyroid disorder Social History number of children: 6 Smoking Status: Never smoker alcohol intake: never substance use type: does not use caffeine: Yes what type of physical activity do you participate in: walking seatbelt use: always do you feel safe at home: Yes additional social history: [employer] 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 Date Name GA/Weeks Outcome Route Bth Weight Gen Labor Lgth Anesthesia Del Locatn Provider FOB Unknown 2001 Kevin live - full term Unknown 2003 Dena live - full term HPI Encounter for routine gynecological examination Details: SHWETHA ELLIS is a 59 year old who presents for annual exam. She reports she has been having a pelvic cramping sensation the past 6 months. She reports no vaginal bleeding. Does not track to be correlated with anything. She is sexually active; no concerns for STD's. Does have history of PMB--x 3 years ago. EMB completed and normal at that time. Last PAP: 2020; normal. HPV neg. History of abnormal PAP: ASCUS 2019. Last mammogram: 10/2023; normal. History of abnormal mammogram: no. Colon cancer screenin; normal. Other preventative health care screenings: Effie Her; PCP--retired; Dr. Price. Female Reproductive History Questions: metorrhagia: No, sexually active: Yes, dyspareunia: No and PCB: No ROS Const Constitutional: Reports as per HPI and weight gain; Denies fatigue or weight loss Eyes Eyes: Denies change in vision ENT ENT: Denies dizziness Cardio Card: Denies chest pain Resp Resp: Denies cough or dyspnea on exertion GI GI: Denies abdominal pain, bloating, change in stool character, constipation or vomiting : Reports as per HPI; Denies difficulty voiding, nipple discharge, pelvic pain, urinary frequency, urinary incontinence, urinary urgency, vaginal discharge, vaginal dryness, vaginal odor or vaginal pruritus Skin Skin/Breast: Denies alopecia, rash, breast mass, breast pain, breast skin changes or nipple discharge Neuro Neuro: Denies dizziness Psych Psych: Denies anxiety or depression Endo Endo: Denies cold intolerance, excessive sweating or heat intolerance Exam Const General: cooperative, healthy appearing, comfortable, no acute distress, well groomed and well hydrated Nutritional Appearance: well nourished Orientation: alert, awake and oriented x3 HENMT Head: normal to inspection and normocephalic Ears: hearing grossly normal bilaterally and external ears normal Nose: external nose normal Face and sinus: normal facial exam Eyes General: appearance normal, both eyes and all related structures Neck Neck: normal visual inspection, full ROM and no lymphadenopathy Thyroid: thyroid normal Chest Chest palpat (more content not included)... Normal [facility] Culture, urineOrdered By: Lashonda Price on 06-03-2023 Bacteria identified Cx Nom (U) Escherichia coli [facility] Culture, urineOrdered By: Lashonda Price on 06-03-2023 Bacteria identified Cx Nom (U) Escherichia coli [facility] Absolute lymphocyte countOrd ered By: Dr. Young on 06-18-2022 Lymphocytes Auto (Unsp spec) [#/Vol] 2.47 10*3/uL 0.83-4.51 [facility] Basophil percentageOrdered B y: Dr. Young on 03-07-2023 Basophil percentage 0-5 SEEN /hpf 0-5 [facility] Basophils/100 WBC (Bld) 0.7 % 0-1 [facility] Bilirubin [Mass/Vol] 0.40 mg/dL 0.20-1.00 [facility] Comment on above: For patients on eltr ombopag therapy, use of Dimension [place] TBIL is not recommended. Chloride [Moles/Vol] 107 mmol/L 98-107 [facility] Eosinophils/100 WBC (Bld) 3.8 % 0-5 [facility] Glucose [Mass/Vol] 94 mg/dL 74-[address] [facility] Neutrophils (Bld) [#/Vol] 5.3 10*3/uL 2.0-7.7 [facility] Neutrophils/100 WBC (Bld) 58.6 % 47-70 [facility] Potassium [Moles/Vol] 4.2 mmol/L 3.5-5.1 [facility] Protein [Mass/Vol] 7.3 g/dL 6.4-8.[address] [facility] Sodium [Moles/Vol] 142 mmol/L 136-[address] [facility] WBC (Bld) [#/Vol] 9.1 10*3/uL 4.4-11.[address] [facility] Bilirubin Test strip Ql (U)O rdered By: Dr. Young on 06-18-2022 Bilirubin Ql (U) Negative Negative [facility] Blood erythrocytes count (nu mber/volume)Ordered By: Dr. Young on 06-18-2022 RBC (Bld) [#/Vol] 5.07 10*6/uL 4.2-5.4 [facility] Blood hemoglobin measurement (mass/volume)Ordered By: Dr. Young on 06-18-2022 Hemoglobin (Bld) [Mass/Vol] 13.3 g/dL 12.0-15.0 [facility] Blood lymphocytes/100 leukoc ytesOrdered By: Dr. Young on 06-18-2022 Lymphocytes/100 WBC (Bld) 27.3 % 19-41 [facility] Blood monocytes/100 leukocyt esOrdered By: Dr. Young on 06-18-2022 Monocytes/100 WBC (Bld) 9.4 % 0-10 [facility] Blood platelet mean volumeOr dered By: Dr. Young on 06-18-2022 Platelet mean volume (Bld) [Entitic vol] 10.6 fL 6.2-12.0 [facility] Determination of erythrocyte mean corpuscular volume (MCV)Ordered By: Dr. Young on 06-18-2022 MCV (RBC) [Entitic vol] 84.8 fL 81-99 [facility] Hematocrit Auto (Bld) [Volum e fraction]Ordered By: Dr. Young on 06-18-2022 Hematocrit (Bld) [Volume fraction] 43.0 % 37-47 [facility] Ketones Test strip Ql (U)Ord ered By: Dr. Young on 06-18-2022 Ketones Ql (U) Negative Negative [facility] Laboratory - Chemistry and C hemistry - challengeOrdered By: Dr. Young on 06-18-2022 ALP [Catalytic activity/Vol] 95 U/L 45-117 [facility] ALT [Catalytic activity/Vol] 20 U/L 13-56 [facility] CO2 [Moles/Vol] 29.0 mmol/L 21.0-32.0 [facility] Globulin (S) [Mass/Vol] 3.5 g/dL 2.2-4.2 [facility] Urea nitrogen/Creatinine [Mass ratio] 15.5 mg/mg 10-20 [facility] Laboratory - Hematology and Cell countsOrdered By: Dr. Young on 06-18-2022 Erythrocyte distribution width (RBC) [Entitic vol] 43.4 fL 35.1-43.9 [facility] Erythrocyte distribution width (RBC) [Ratio] 14.0 % 11.6-14.6 [facility] Immature granulocytes/100 WBC (Bld) 0.200 % 0.0-0.9 [facility] Comment on above: IG% - Immature Granu locytes (promyelocytes, myelocytes and metamyelocytes) > 1% indicates that a LEFT SHIFT is Present. MCH (RBC) [Entitic mass] 26.2 pg 27.0-32.0 [facility] Nucleated RBC/100 WBC (Bld) [Ratio] 0 % 0-5 [facility] MCHC Auto (RBC) [Mass/Vol]Or dered By: Dr. Young on 06-18-2022 MCHC (RBC) [Mass/Vol] 30.9 g/dL 32-36 [facility] Mucus LM Ql (Urine sed)Order ed By: Dr. Young on 06-18-2022 Mucus Ql (Urine sed) 0 SEEN /hpf [facility] Nitrite Test strip Ql (U)Ord ered By: Dr. Young on 06-18-2022 Nitrite Ql (U) Negative Negative [facility] No Panel InformationOrdered By: Dr. Young on 06-18-2022 Estimated Creatinine Clearance Calc 66.49 ml/min [facility] Estimated GFR (MDRD) Amer 90 mL/min >60 [facility] Comment on above: GFR Calc Estimated GFR (MDRD) Non-Af Amer 74 mL/min >60 [facility] Comment on above: Non- GFR Calc Platelets bldOrdered By: Dr. Young on 06-18-2022 Platelets (Bld) [#/Vol] 259 10*3/uL 150-450 [facility] Protein Test strip Ql (U)Ord ered By: Dr. Young on 06-18-2022 Protein Ql (U) Negative Negative [facility] Serum or plasma albumin shahzad urement (mass/volume)Ordered By: Dr. Young on 06-18-2022 Albumin [Mass/Vol] 3.8 g/dL 3.2-5.[address] [facility] Serum or plasma albumin/glob ulin mass ratioOrdered By: Dr. Young on 06-18-2022 Albumin/Globulin [Mass ratio] 1.1 {ratio} 0.9-2.4 [facility] Serum or plasma calcium shahzad urement (mass/volume)Ordered By: Dr. Young on 06-18-2022 Calcium [Mass/Vol] 9.2 mg/dL 8.5-10.[address] [facility] Serum or plasma creatinine m easurement (mass/volume)Ordered By: Dr. Young on 06-18-2022 Creatinine [Mass/Vol] 0.84 mg/dL 0.55-1.02 [facility] Comment on above: The validity of the calculated GFR & GFRAA in patients over 70 years has not been determined. Clinical correlation is essential. Serum or plasma urea nitroge n measurement (mass/volume)Ordered By: Dr. Young on 06-18-2022 Urea nitrogen [Mass/Vol] 13 mg/dL 7-18 [facility] Squamous epithelial cells de tection in urine sediment by light microscopyOrdered By: Dr. Young on 06-18-2022 Epithelial cells.squamous LM Ql (Urine sed) 0-5 SEEN /hpf 5-10 [facility] Thin prep Papanicolaou smear with manual screeningOrdered By: Dr. Young on 06-18-2022 Thin prep Papanicolaou smear with manual screening 18 U/L 15-37 [facility] Thin prep Papanicolaou smear with manual screening 6 5-15 [facility] Urine blood detectionOrdered By: Dr. Young on 06-18-2022 RBC Ql (U) 10 /ul Negative [facility] RBC Ql (U) 0-5 SEEN /hpf 0-5 [facility] Urine clarityOrdered By: Dr. Young on 06-18-2022 Clarity (U) Clear Clear [facility] Urine color determinationOrd ered By: Dr. Young on 06-18-2022 Color (U) Yellow Yellow [facility] Urine glucose detectionOrder ed By: Dr. Young on 06-18-2022 Glucose Ql (U) Normal mg/dl Normal [facility] Urine leukocyte esterase det ection by dipstickOrdered By: Dr. Young on 06-18-2022 Leukocyte esterase Test strip Ql (U) 25 /ul Negative [facility] Urine pHOrdered By: Dr. Paddy waldrop on 06-18-2022 pH (U) 7.0 [pH] 5.0 - 8.0 [facility] Urine sediment bacteria coun t by microscopy (number/high power field)Ordered By: Dr. Young on 06-18-2022 Bacteria LM.HPF (Urine sed) [#/Area] 0 /[HPF] None Seen [facility] Urine specific gravity measu rementOrdered By: Dr. Young on 06-18-2022 Specific gravity (U) [Rel density] 1.010 1.002-1.030 [facility] Urobilinogen Auto test strip Ql (U)Ordered By: Dr. Young on 06-18-2022 Urobilinogen Ql (U) Normal mg/dl Normal [facility] Basophil percentageon 2021 Chloride [Moles/Vol] 106 mmol/L 98-107 [facility] Work Phone: Glucose [Mass/Vol] 114 mg/dL 74-[address] [facility] Work Phone: Comment on above: Fasting Glucose resu lt from 100 to 125 mg/dL suggests IMPAIRED HOMEOSTASIS per A.D.A. criteria. Potassium [Moles/Vol] 4.1 mmol/L 3.5-5.1 [facility] Work Phone: Sodium [Moles/Vol] 142 mmol/L 136-[address] [facility] Work Phone: WBC (Bld) [#/Vol] 8.4 10*3/uL 4.4-11.[address] [facility] Work Phone: Blood erythrocytes count (nu mber/volume)on 01-24-2022 RBC (Bld) [#/Vol] 5.15 10*6/uL 4.2-5.4 [facility] Work Phone: Blood hemoglobin measurement (mass/volume)on 01-24-2022 Hemoglobin (Bld) [Mass/Vol] 13.3 g/dL 12.0-15.0 [facility] Work Phone: Blood platelet mean volumeon 01-24-2022 Platelet mean volume (Bld) [Entitic vol] 10.7 fL 6.2-12.0 [facility] Work Phone: Determination of erythrocyte mean corpuscular volume (MCV)on 01-24-2022 MCV (RBC) [Entitic vol] 83.3 fL 81-99 [facility] Work Phone: Hematocrit Auto (Bld) [Volum e fraction]on 01-24-2022 Hematocrit (Bld) [Volume fraction] 42.9 % 37-47 [facility] Work Phone: Laboratory - Chemistry and C hemistry - challengeon 01-24-2022 CO2 [Moles/Vol] 30.0 mmol/L 21.0-32.0 [facility] Work Phone: Urea nitrogen/Creatinine [Mass ratio] 21.0 mg/mg 10- [facility] Work Phone: Laboratory - Hematology and Cell countson 01-24-2022 Erythrocyte distribution width (RBC) [Entitic vol] 44.7 fL 35.1-43.9 [facility] Work Phone: Erythrocyte distribution width (RBC) [Ratio] 14.7 % 11.6-14.6 [facility] Work Phone: MCH (RBC) [Entitic mass] 25.8 pg 27.0-32.0 [facility] Work Phone: MCHC Auto (RBC) [Mass/Vol]on 01-24-2022 MCHC (RBC) [Mass/Vol] 31.0 g/dL 32-36 [facility] Work Phone: No Panel Informationon 01-24 Estimated GFR (MDRD) Amer 88 mL/min >60 [facility] Work Phone: Comment on above: GFR Calc Estimated GFR (MDRD) Non-Af Amer 73 mL/min >60 [facility] Work Phone: Comment on above: Non- GFR Calc Platelets bldon 01-24-2022 Platelets (Bld) [#/Vol] 250 10*3/uL 150-450 [facility] Work Phone: Serum or plasma calcium shahzad urement (mass/volume)on 01-24-2022 Calcium [Mass/Vol] 9.4 mg/dL 8.5-10.[address] [facility] Work Phone: Serum or plasma creatinine m easurement (mass/volume)on 01-24-2022 Creatinine [Mass/Vol] 0.86 mg/dL 0.55-1.02 [facility] Work Phone: Comment on above: The validity of the calculated GFR & GFRAA in patients over 70 years has not been determined. Clinical correlation is essential. Serum or plasma urea nitroge n measurement (mass/volume)on 01-24-2022 Urea nitrogen [Mass/Vol] 18 mg/dL 10-29 [facility] Work Phone: Thin prep Papanicolaou smear with manual screeningon 01-24-2022 Thin prep Papanicolaou smear with manual screening 6 08-26 [facility] Work Phone: Vital Signs Date Time Vital Sign Value Performing Clinician Faci lity 08-19-2024 14:24-0400 Body height 165.[address] Effie Her MD Work Phone: [facility] 08-19-2024 14:24-0400 Body mass index (BMI) [Ratio] 32.3 kg/m2 Dr. Effie Her MD Work Phone: [facility] 08-19-2024 14:24-0400 Body weight 88.[address] Effie Her MD Work Phone: [facility] 08-19-2024 14:24-0400 Diastolic blood pressure 69 mm[Hg] Dr. Effie Her MD Work Phone: [facility] 08-19-2024 14:24-0400 Systolic blood pressure 112 mm[Hg] Dr. Effie Her MD Work Phone: [facility] 07-21-2023 08:22-0400 Body height 165.[address] Effie Her Work Phone: [facility] 07-21-2023 08:17-0400 Body mass index (BMI) [Ratio] 31.4 kg/m2 Dr. Effie Her Work Phone: [facility] 07-21-2023 08:17-0400 Body weight 85.[address] Effie Her Work Phone: [facility] 07-21-2023 08:17-0400 Diastolic blood pressure 75 mm[Hg] Dr. Effie Her Work Phone: [facility] 07-21-2023 08:17-0400 Heart rate 63 /min Dr. Effie Her Work Phone: [facility] 07-21-2023 08:17-0400 Systolic blood pressure 122 mm[Hg] Dr. Effie Her Work Phone: [facility] 05-23-2023 08:39-0500 Body height 165.[address] Effie Her Work Phone: [facility] 05-23-2023 08:39-0500 Body mass index (BMI) [Ratio] 31.5 kg/m2 Dr. Effie Her Work Phone: [facility] 05-23-2023 08:39-0500 Body weight 85.[address] Effie Her Work Phone: [facility] 05-23-2023 08:39-0500 Diastolic blood pressure 73 mm[Hg] Dr. Effie Her Work Phone: [facility] 05-23-2023 08:39-0500 Heart rate 71 /min Dr. Effie Her Work Phone: [facility] 05-23-2023 08:39-0500 Systolic blood pressure 125 mm[Hg] Dr. Effie Her Work Phone: [facility] 04-22-2023 15:38-0500 Diastolic blood pressure 82 mm[Hg] Dr. Effie Her Work Phone: [facility] 04-22-2023 15:38-0500 Systolic blood pressure 124 mm[Hg] Dr. Effie Her Work Phone: [facility] 04-22-2023 15:26-0500 Body mass index (BMI) [Ratio] 32.3 kg/m2 Dr. Effie Her Work Phone: [facility] 04-22-2023 15:26-0500 Body weight 88.[address] Effie Her Work Phone: [facility] 02-20-2023 08:49-0500 Body height 165.[address] Effie Her Work Phone: [facility] 02-20-2023 08:44-0500 Body mass index (BMI) [Ratio] 32.4 kg/m2 Dr. Effie Her Work Phone: [facility] 02-20-2023 08:44-0500 Body weight 88.[address] Effie Her Work Phone: [facility] 02-20-2023 08:44-0500 Diastolic blood pressure 68 mm[Hg] Dr. Effie Her Work Phone: [facility] 02-20-2023 08:44-0500 Systolic blood pressure 112 mm[Hg] Dr. Effie Her Work Phone: [facility] 06-18-2022 19:00-0500 Diastolic blood pressure 56 mm[Hg] [facility] 06-18-2022 19:00-0500 Heart rate 71 /min [facility] 06-18-2022 19:00-0500 Respiratory rate 16 /min [facility] 06-18-2022 19:00-0500 SaO2% (BldA) [Mass fraction] 97 % [facility] 06-18-2022 19:00-0500 Systolic blood pressure 111 mm[Hg] [facility] 06-18-2022 16:05-0500 Body height 165.1 cm [facility] 06-18-2022 16:05-0500 Body mass index (BMI) [Ratio] 33.3 kg/m2 [facility] 06-18-2022 16:05-0500 Body temperature 97.5 [degF] [facility] 06-18-2022 16:05-0500 Body weight 90.71 kg [facility] Encounters Encounter Date Encounter Type Care Provider Facility Start: 12-16-2024 ambulatory Brandy Fields NP Facil ity:[facility] Start: 08-19-2024 End: 08-19-[address] Effie Her MD Work Phone: [facility] Work Phone: Start: 08-19-2024 End: 08-19-2024 Patient encounter procedure Felicia Michele BONILLA-C -Laboratory, Specimen Work Phone: Start: 08-19-2024 End: 08-19-2024 Patient encounter procedure Felicia Bautista ROSS FURNACE OPERATOR-C -[facility] Work Phone: Start: 08-19-2024 End: 08-19-2024 Patient encounter status Felicia Bautista ROSS FURNACE OPERATOR-C [facility] Start: 08-19-2024 End: 08-19-2024 ambulatory Felicia Bautista Facility:[facility] Start: 08-19-2024 End: 08-19-2024 ambulatory Felicia Bautista Facility:[facility] Start: 07-21-2023 End: 07-21-[address] Effie Her Work Phone: [facility] Work Phone: Start: 07-16-2023 End: 07-16-[address] Effie Her Work Phone: [facility] Work Phone: Start: 07-16-2023 End: 07-16-[address] Effie Her Work Phone: [facility] Work Phone: Start: 06-03-2023 End: 06-03-[address] Effie Her Work Phone: [facility] Work Phone: Start: 06-03-2023 End: 06-03-[address] Effie Her Work Phone: [facility]-Laboratory, Specimen Work Phone: Start: 05-23-2023 End: 05-23-[address] Effie Her Work Phone: [facility] Work Phone: Start: 04-22-2023 End: 04-22-[address] Effie Her Work Phone: [facility] Work Phone: Start: 03-12-2023 End: 03-12-[address] Effie Her Work Phone: [facility] Work Phone: Start: 03-12-2023 End: 03-12-[address] Effie Her [facility] Phone[facility] Start: 02-20-2023 End: 02-20-[address] Effie Her Work Phone: [facility] Work Phone: Start: 06-24-2022 End: 06-24-2022 ambulatory [facility] Work Phone: Start: 06-24-2022 End: 06-24-2022 Patient encounter procedure [facility]-Laboratory, Specimen Start: 06-21-[address] RAJESH JOHNSON MD Facility:[facility] Start: 06-20-[address] RAJESH JOHNSON MD Facility:[facility] Start: 06-18-2022 End: 06-18-2022 Emergency department patient visit [facility]-Emergency Department Start: 04-10-2022 End: 04-10-[address] Effie Her Work Phone: [facility] Work Phone: Start: 04-10-2022 End: 04-10-[address] Effie Her Work Phone: [facility]-Outpatient Breast Imaging Start: 01-24-2022 End: 01-24-2022 ambulatory [facility] Work Phone: Start: 01-24-2022 End: 01-24-2022 Patient encounter procedure [facility]-Pulmonary Services/Neurology Start: 01-24-2022 Non-patient / Non-visit Dr. Isaiah Her Work Phone: [facility] Procedures Date Procedure Procedure Detail Performing Clinician Start: 08-19-2024 Liquid based cervica l cytology screening Dr. Effie Her MD Work Phone: Comment on above: NEGATIVE FOR INTRAEP ITHELIAL LESION OR MALIGNANCY. This liquid based Th inPrep(R) pap test was screened withthe use of an image guided system. Start: 07-16-2023 Plain X-ray of shoulder Dr. Effie Her Work Phone: Start: 06-03-[address] Effie mitchell Work Phone: Start: 03-12-[address] Shiloh Her Work Phone: Start: 03-12-2023 X-ray of cervical spine Dr. Effie Her Work Phone: Start: 06-18-2022 CT of abdomen and pe lvis without contrast Start: 04-10-2022 Screening mammography History of appendectomy Hx of appendectom y History of cholecystectomy Hx of cholecystectomy Plan of Treatment Date Care Activity Detail Author Start: 04-10-2022 Screening mammography SCRN SERJIO M (CAD)W/ARUN BILAT [facility] Work Phone: Calculus analysis [facility] Measurement of weigh t of calculus [facility] MG Breast - bilatera l Screening [facility] MG Breast - bilatera l Screening [facility] Origin of [facility] Patient Education ED Kidney Ston e w/ Colic [facility] Work Phone: Patient referral [facility] Work Phone: Specimen color determination [facility] Payers Date Payer Category Payer Self-pay [id number] 2022 Unknown [id number] 2009 Unknown [employer] [place] [id number] 1965 Unknown [id number] Private Health Insurance [employer] [id number] Unknown COMMERCIAL OTHER [id number] Unknown [id number] Unknown [id number] Unknown [id number] Social History Date Type Detail Facility Start: 03-25-2021 End: 07-21-2023 Tobacco smoking status MNIS Unknown if ever smoked [facility] Start: 08-26-2013 None [facility] Start: 08-26-2013 Spouse/ Signif icant Other [facility] Start: 04-08-2019 Non-smoker [facility] Start: 1965 Sex Assigned At Female [facility] Start: 07-21-2023 Tobacco smoking status NHIS Never smoked tobacco (finding) [facility] Mental Status Date Assessment Result Facility 06-18-2022 Cognitive function Level Of Cons ciousness Awake;Alert;Appropriate;Follow s Commands [facility] Work Phone: Evaluation note 08-19-2024 Note Date & Type Note Facility 08-19-2024 Evaluation note Diagnosis Onset Date Resolution Climacteric acute August 19, 2024 2:20pm Encounter for routine gynecological examination noneactive August 19, 2024 2: 20pm [facility] Work Phone: Discharge summary 06-18-2022 Note Date & Type Note Facility 06-18-2022 Discharge summary Note Date/Time June 18, 2022 4:19pm [facility] Medical Records Department [address] [place] [address] Emergency Department Summary 06/18/22 MR#: [id number] Acct: [id number] Name: SHWETHA ELLIS Rep #:[id number] : 1965 57 From: Lake Young MD PCP: Dr. Effie Her MD Status:REG ER Location: ED HPI History of Present Illness Chief Complaint: Flank Pain Narrative Narrative: Patient presents with right flank and right lower quadrant abdominal pain for about 6 days. Pain waxes and wanes, she had did notice some hematuria. She hasa history of kidney stones and she feels similar. No fevers or chills. No left-sided pain. [facility] Medical History (Updated 06/18/22 @ 18:[address] Lake Young MD) Acid reflux Hyperglycemia Kidney stones Home Medications biotin 1 mg capsule 1 mg PO DAILY 07/22/18 [History Last Taken Unknown] cholecalciferol (vitamin D3) 25 mcg (1,000 unit) capsule 1,000 unit PO DAILY 07/22/18 [History Last Taken Unknown] cyanocobalamin (vitamin B-12) 1,000 mcg capsule 1,000 mcg PO DAILY 07/22/18 [History Last Taken Unknown] vitamin A 2,400 mcg capsule 8,000 unit PO DAILY 07/22/18 [History Last Taken Unknown] multivitamin 1 tab PO DAILY 06/29/20 [History Last Taken Unknown] ondansetron 4 mg disintegrating tablet 4 mg PO Q8H PRN PRN Nausea #10 tabs 06/18/22 [Rx Last Taken Unknown] oxycodone-acetaminophen 5 mg-325 mg tablet (Endocet) 1 tab PO Q8H PRN pain 3 days #12 tabs 06/18/22 [Rx Last Taken Unknown] Allergy/AdvReac Type Severity Reaction Status Date / Time morphine Allergy LOW BP AND Verified 06/18/22 16:07 HR Family History Mother Cancer lung-smoker Father Atrophic emphysema Thyroid disorder Sister Thyroid disorder Surgical History delivery delivered Hx of appendectomy Hx of cholecystectomy Hx of umbilical hernia repair Social History number of children: 6 Smoking Status: Never smoker alcohol intake: never substance use type: does not use caffeine: Yes what type of physical activity do you participate in: walking seatbelt use: always do you feel safe at home: Yes additional social history: Pavel chatterjee 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 She has some nausea. Genitourinary: Some hematuria Musculoskeletal: Denies myalgias no difficulty with ambulation Skin: No rash EXAM Physical Exam Narrative Exam Narrative: Physical exam General: Patient appears somewhat uncomfortable Head: Normocephalic, Atraumatic Neck: Supple, Nontender, No lymphadenopathy Cardiovascular: Regular rate, Regular rhythm Respiratory: No distress, CTA bilaterally Abdomen: Soft, right-sided abdominal pain and right CVA tenderness. Back: Nontender, Normal Inspection. Nontender Extremities: Nontender, No edema Skin: Normal color, No rash Const Vital Signs: 06/18/22 16:05 Temperature 97.5 F L Temperature Source Temporal Pulse Rate 78 Respiratory Rate 18 Blood Pressure 168/77 H Blood Pressure Mean 107 Pulse Ox 98 Oxygen Delivery Method Room Air MDM MDM MDM Narrative Medical decision making narrative: A. Problems addressed Patient has prior kidney stones. She told me she felt like a kidney stone however I did rule out appendicitis and and colitis. She is given analgesia andantiemetics. She improved I also gave her NSAIDs. She is found to have a 6 mm UVJ stone. She has an appointment with Dr. Johnson on June 24. I told her if anything changes she is to return. Otherwise she is to keep her appointment. She will be given opiate analgesics for home, Lane as well as Zofran. B. Amount and/or complexity of the data (2 out of 3) 1. I discussed with the who was in the room I interpreted CBC CMP and urinalysis 2. I independently interpreted the CT scan and it showed a 3 mm stone, she also has other stones in her kidneys that are not obstructing. Differential diagnosis: See above I have thought about admitting the patient initially since she is almost at a week of a kidney stone but she wants to be discharged to talk to her and her about outpatient management which she is comfortable with. Lab Data Labs: Laboratory Results - last 24 hr 06/18/22 06/18/22 06/18/22 16:20 16:20 16:25 WBC 9.1 RBC 5.07 Hgb 13.3 Hct 43.0 MCV 84.8 MCH 26.2 L MCHC 30.9 L RDW Std Deviation 43.4 RDW Coeff of Zaria 14.0 Plt Count 259 MPV 10.6 Immature Gran % (Auto) 0.200 Neut % (Auto) 58.6 Lymph % (Auto) 27.3 [place] % (Auto) 9.4 Eos % (Auto) 3.8 Baso % (Auto) 0.7 Absolute Neuts (auto) 5.3 Absolute Lymphs (auto) 2.47 Nucleated RBC % 0 Sodium 142 Potassium 4.2 Chloride 107 Carbon Dioxide 29.0 Anion Gap 6 BUN 13 Creatinine 0.84 Estim Creat Clear Calc 66.49 Est GFR (MDRD) Af Amer 90 Est GFR (MDRD) Non-Af 74 BUN/Creatinine Ratio 15.5 Glucose 94 Calcium 9.2 Total Bilirubin 0.40 AST 18 ALT 20 Alkaline Phosphatase 95 Total Protein 7.3 Albumin 3.8 Globulin 3.5 Albumin/Globulin Ratio 1.1 Urine Color Yellow Urine Clarity Clear Urine pH 7.0 Ur Specific [place] 1.010 Urine Protein Negative Urine Glucose (UA) Normal Urine Ketones Negative Urine Occult Blood 10 H Urine Nitrite Negative Urine Bilirubin Negative Urine Urobilinogen Normal Ur Leukocyte Esterase 25 H Urine RBC 0-5 SEEN Urine WBC 0-5 SEEN Ur Squamous Epith Cells 0-5 SEEN Urine Bacteria 0 SEEN Urine Mucus 0 SEEN Radiography Diagnostic Testing: Clinical Impression(s) from Imaging Studies Abdomen/Pelvis CT 06/18/22 17:01 IMPRESSION: Partially obstructing 6 mm distal right ureteral calculus. Electronically Signed: Ej Carter MD at 18:16 EST Reading Location ID and State: [facility] / [place] Tel , Service support , Discharge Plan Triage Chief Complaint: Flank Pain ED Provider: Lake Young Dx/Rx/DC Orders Clinical Impression: Kidney calculi, Acute flank pain Instructions: ED Kidney Stone w/ Colic Prescriptions: New oxycodone-acetaminophen [Endocet] 5-325 mg tablet 1 tab PO Q8H PRN (Reason: pain) 3 Days Qty: 12 0RF ondansetron 4 mg tablet,disintegrating 4 mg PO Q8H PRN PRN (Reason: Nausea) Qty: 10 0RF No Action vitamin A 8,000 unit capsule 8,000 unit PO DAILY cyanocobalamin (vitamin B-12) 1,000 mcg capsule 1,000 mcg PO DAILY cholecalciferol (vitamin D3) 1,000 unit capsule 1,000 unit capsule 1,000 unit PO DAILY biotin 1 mg capsule 1 mg PO DAILY multivitamin Tablet 1 tab PO DAILY Primary Care Provider: Effie Her Referrals: Effie Her MD [Primary Care Provider] - 3-5 Days Disposition Disposition: Home, Self Care What to do if you have Problems For any increased pain, shortness of breath, bleeding, nausea or vomiting, chestpain, or any unexpected problems, contact your Primary Care Provider. Call [facility] ([phone]) or report to the closest Emergency Room. Call 911 if necessary. 06/18/223 <Electronically signed by Lake Young MD> Cosigner Signature (if applicable): CC: Dr. Effie Her MD ~ Signed [facility] Work Phone: Evaluation note Note Date & Type Note Facility Evaluation note No assessment information availa ble [facility] Work Phone: Evaluation note Note Date & Type Note Facility Evaluation note Diagnosis Onset Date Adult BMI 32.0-32.9 kg/sq m acute Hyperlipemia acute Obesity (BMI 30.0-34.9) acut e Encounter for routine gyneco logical examination noneactive [facility] Work Phone: Evaluation note Note Date & Type Note Facility Evaluation note Diagnosis Onset Date Adult BMI 32.0-32.9 kg/sq m acute Hyperlipemia acute Obesity (BMI 30.0-34.9) acut e Encounter for routine gyneco logical examination noneactive Adult BMI 32.0-32.9 kg/sq m acute Obesity (BMI 30.0-34.9) acut e Adult BMI 32.0-32.9 kg/sq m acute Hyperglycemia acute Hyperlipemia acute Obesity (BMI 30.0-34.9) acut e [facility] Work Phone: Evaluation note Note Date & Type Note Facility Evaluation note Diagnosis Onset Date Adult BMI 32.0-32.9 kg/sq m acute Obesity (BMI 30.0-34.9) acut e Adult BMI 32.0-32.9 kg/sq m acute Hyperglycemia acute Hyperlipemia acute Obesity (BMI 30.0-34.9) acut e Adult BMI 32.0-32.9 kg/sq m acute Obesity (BMI 30.0-34.9) acut e [facility] Work Phone: Reason for referral (narrative) Note Date & Type Note Facility Reason for referral (narrative) No reason for referral information available [facility] Work Phone: Chief Complaint and Reason for Visit Chief Complaint PREOP Chief Complaint PREOP PREOP SCREENING Chief Complaint SCREENING FLANK PAIN Chief Complaint 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 Reason for Visit Adult BMI 32.0-32.9 kg/sq m Hyperlipemia Obesity (BMI 30.0-34.9) Encounter for routine gynecological examination Chief Complaint 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 Adipex f/u, renew script 1 M FU adipex Reason for Visit Adult BMI 32.0-32.9 kg/sq m Hyperlipemia Obesity (BMI 30.0-34.9) Encounter for routine gynecological examination Adult BMI 32.0-32.9 kg/sq m Obesity (BMI 30.0-34.9) Adult BMI 32.0-32.9 kg/sq m Hyperglycemia Hyperlipemia Obesity (BMI 30.0-34.9) Chief Complaint Adipex f/u, renew sc ript 1 M FU adipex EORDER 1 M FU Reason for Visit Adult BMI 32.0-32.9 kg/sq m Obesity (BMI 30.0-34.9) Adult BMI 32.0-32.9 kg/sq m Hyperglycemia Hyperlipemia Obesity (BMI 30.0-34.9) Adult BMI 32.0-32.9 kg/sq m Obesity (BMI 30.0-34.9) Chief Complaint Admit Date 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) August 19, 2024 2:20pm Reason for Visit Admit Date Climacteric August 19, 2024 2:20pm Encounter for routine gynecological exam ination August 19, 2024 2:20pm Family History No Family History Records Found Relationship Condition Age at Onset Recorded Date/T lashawn mother Malignant neoplasm Unknown father Atrophic emphysema Unknown Disorder of thyroid Unknown sister Disorder of thyroid Unknown Advance Directives No Advanced Directives Records Found Advance Directive Response Recorded Date/ Time Advance Directives No August 30 4 6:40pm Living Will No March 25 11:35am Power of Forensic Medical Examiner No March 25, 2021 11:35am Advance Directive Response Recorded Date/ Time Advance Directives No August 30 4 5:40pm Living Will No March 25 10:35am Power of Forensic Medical Examiner No March 25, 2021 10:35am Advance Directive Response Recorded Date/ Time Advance Directives No August 30 4 5:40pm Living Will No June 18, 2022 4:36pm Power of Forensic Medical Examiner No June 18 3 4:36pm Advance Directive Response Recorded Date/ Time Advance Directives No August 30 4 6:40pm Living Will No June 18, 2022 5:36pm Power of Forensic Medical Examiner No June 18 3 5:36pm Advance Directive Response Recorded Date/ Time Advance Directives No August 30 4 6:40pm Summary Purpose Additional Source Comments Goals (unrecognized section and content) Goals may be documented in a n alternate sectionGoals may be documented in an alternate sectionGoals may be documented in an alternate sectionGoals may be documented in an alternate sectionGoals may be documented in an alternate sectionGoals may be documented in an alternate sectionGoals may be documented in an alternate sectionGoals may be documented in an alternate section Care Teams (unrecognized sec tion and content) Team Status: Active Member Role Status Dates Dr. Effie Her MD Family Provider Active Dr. Effie Her MD Primary Care Provider Active Team Status: Inactive Member Role Status Dates Dr. Effie Her MD Primary Care Provider Active Brandy Fields ROSS FURNACE OPERATOR, ROSS FURNACE OPERATOR-C Attending Provider Active Team Status: Inactive Member Role Status Dates Dr. Effie Her MD Primary Care Provider Active Dr. Lake Young MD Emergency Provider Active Team Status: Inactive Member Role Status Dates Dr. Effie Her MD Primary Care Provider Active Dr. Lake Young MD Attending Provider, Emergency Pr ovider Active Team Status: Inactive Member Role Status Dates Dr. Effie Her MD Primary Care Provider Active Dr. Rajesh Johnson MD Attending Provider Active Team Status: Inactive Member Role Status Dates Dr. Effie Her MD Referring Provider Active Brandy Fields ROSS FURNACE OPERATOR, ROSS FURNACE OPERATOR-C Attending Provider Active Team Status: Inactive Member Role Status Dates Dr. Eugene Price MD Attending Provider, Referri ng Provider Active Dr. Effie Her MD Primary Care Provider Active Team Status: Inactive Member Role Status Dates Dr. Effie Her MD Primary Care Provider, Referrin g Provider Active Brandy Fields ROSS FURNACE OPERATOR, ROSS FURNACE OPERATOR-C Attending Provider Active Team Status: Inactive Member Role Status Dates Dr. Effie Her MD Primary Care Provider, Referrin g Provider Active Dr. Kim Hackett MD Attending Provider Active Team Status: Inactive Member Role Status Dates Dr. Effie Her MD Primary Care Provider Active Dr. Eugene Price MD Attending Provider, Referri ng Provider Active Team Status: Inactive Member Role Status Dates Dr. Effie Her MD Primary Care Provider Active Dr. Micky Price MD Attending Provider, Referr ing Provider Active Team Status: Inactive Member Role Status Dates Dr. Effie Her MD Primary Care Provider Active Start: August 19, 2024 End: August 19, 2024 Dr. Effie Her MD Referring Provider Active Start: August 19, 2024 End: August 19, 2024 SWEETIE Tyson Attending Provider Active Start: August 19, 2024 End: August 19, 2024 Team Status: Inactive Member Role Status Dates Dr. Effie Her MD Primary Care Provider Active Start: August 19, 2024 End: August 19, 2024 SWEETIE Tyson Attending Provider Active Start: August 19, 2024 End: August 19, 2024 SWEETIE Tyson Referring Provider Active Start: August 19, 2024 End: August 19, 2024 INFORMATION SOURCE (unrecogn ized section and content) DATE CREATED AUTHOR 06/21/2022 [facility] ([place]) DATE CREATED AUTHOR AUTHOR'S ORGANIZ ATION 12/09/2024 [facility] FOR RECORDS PERTAINING TO PATIENTS WHO ARE OR HAVE BEEN ENROLLED IN A CHEMICAL DEPENDENCY/SUBSTANCEABUSE PROGRAM, SOME INFORMATION MAY BE OMITTED. This clinical summary was aggregated from multiple sources. Caution should be exercised in using it in the provision of clinical care. This summary normalizes information from multiple sources, and as a consequence, information in this document may materially change the coding, format and clinical context of patient data. In addition, data may be omitted in some cases. CLINICAL DECISIONS SHOULD BE BASED ON THE PRIMARY CLINICAL RECORDS. [facility] [employer] [facility]. provides no warranty or guarantee of the accuracy or completeness of information in this document.
--- NOTE | 2024-12-16 07:15 | BI_ITS ---
EXAM: SCRN MAMM (CAD)W/ARUN BILAT DATE: 12/16/2024 CLINICAL HISTORY: F, Age 59 y/o , SCREEN FOR BREAST CANCER No family history. TECHNIQUE: Procedure Code: [id number] Modality: MG Procedure: SCRN MAMM (CAD)W/ARUN BILAT COMPARISON: Prior exam(s) dated November 10, 2023.. FINDINGS: TISSUE DENSITY: The breasts are heterogeneously dense, which may obscure small masses. Bilateral Breast Mammographic Findings: No significant masses, calcifications or other abnormalities are identified. Stable bilateral fat containing axillary lymph nodes. No suspicious masses, areas of developing architectural distortion, or suspicious calcifications. There has been no significant interval change. BI/SCRN MAMM (CAD)W/ARUN BILAT IMPRESSION: Stable bilateral screening mammogram. OVERALL FINAL ASSESSMENT BI-RADS 2: BENIGN RECOMMENDATION: Routine annual follow-up in 1 Year A letter with findings and recommendations will be mailed to the patient. Reading [id number]
== END | disposition home or self-care (01) ==
LOC: OPBI 07:06
PROVIDERS: PCP Family Medicine; Referring Provider Nurse Practitioner Women's Health; Visit Provider Nurse Practitioner Women's Health
DX: Z12.31 Encounter for screening mammogram for malignant neoplasm of breast (principal)
CPT/HCPCS: 77063; 77067

== ENCOUNTER → 2025-03-01 | Outpatient (CLI) | payer OTHER, SELFPAY ==
--- NOTE | 2025-03-01 16:39 | RAD_ITS ---
PROCEDURE: HAND MIN 3 VIEWS 03/01/2025 REASON FOR EXAM: SWELLING PAIN TECHNIQUE: Procedure Code: ROLDAN Modality: DX Procedure: HAND MIN 3 VIEWS Laterality: Left hand COMPARISON: None FINDINGS: Bones: No fracture seen. Joints: Normal alignment. Soft tissues: Diffuse soft tissue swelling. Other: RAD/Hand Min 3 Views IMPRESSION: Soft tissue swelling. No bony abnormality is seen. Reading Location: [facility]
--- NOTE | 2025-03-01 16:39 | RAD_ITS ---
PROCEDURE: ELBOW MIN 3 VIEWS 03/01/2025 REASON FOR EXAM: PAIN, SWELLING BRUISING, NO injury TECHNIQUE: Procedure Code: RADEL Modality: DX Procedure: ELBOW MIN 3 VIEWS Laterality: Left COMPARISON: None FINDINGS: There is no evidence of fracture or dislocation. There is no elbow joint effusion. There is no significant arthropathy. There are no significant soft tissue abnormalities. RAD/Elbow min 3 Views IMPRESSION: No significant abnormality. Reading Location: [place] [id number]
== END | disposition home or self-care (01) ==
LOC: MTRAD 16:27
PROVIDERS: PCP Family Medicine; Referring Provider Family Medicine; Visit Provider Family Medicine
DX: M25.522 Pain in left elbow (principal); M79.642 Pain in left hand
CPT/HCPCS: 73080; 73130